=== PATIENT | female | born 1955 | race Caucasian/White ===

== ENCOUNTER 2017-03-07 17:35 | Inpatient (IN) | payer BC, MEDICARE ==
--- NOTE | ~2017-03-07 | CT2 ---
[facility] A Service of [facility] & [facility] RADIOLOGY TEXT RESULTS PATIENT: LINDSAY SETHI LOCATION: [facility] [id number] : 53 UNIT #: [id number] AGE: [address]: Gwendolyn Rutledge MD SEX: F ORDER DR: [id number] [facility] [address] [place], [place] [address] [id number] MR#: [id number] #: [id number] NAME: LINDSAY SETHI. : 1955 SEX: F STUDY DATE/TIME: 03/07/2017 19:28 UNIT: [facility] ROOM: STUDY DESCRIPTION: CT Abd and Pelv W Cont Attending Physician: Norma Maynard M.D. Referring Physician: Tay Harry M.D. Ordering Physician: Tr Olvera M.D. Primary Care Physician: Tay Harry M.D. MEDICAL IMAGING REPORT This report is preliminary unless electronic signature is present EXAM Abdomen and pelvis CT with contrast. DATE OF EXAM 03/07/2017 INDICATIONS Abdominal pain, nausea, weakness since November. History of bowel obstruction in December with surgery. Pain and nausea symptoms worse today. TECHNIQUE Contrast-enhanced abdomen and pelvis CT was performed and compared with 12/18/2016. NOTE: This CT exam was performed with one or more of the following radiation dose reduction techniques: automatic exposure control, adjustment of mA and/or kV according to patient size, and iterative reconstruction. FINDINGS CT ABDOMEN: Included lung bases demonstrate mild emphysema. There is chronic atelectasis or scarring in the right lower lobe. There is a 4 mm subpleural noncalcified nodule in the right lower lobe. Interval followup CT in 1 year is recommended to reassess stability. It was not present on a more distant 2014 study. No aortic aneurysm or dissection. There are granulomatous changes in the spleen. The adrenal glands are unremarkable. Pancreas atrophic. Postoperative changes involving the stomach are present. Liver unremarkable. Gallbladder surgically absent. Kidneys demonstrate cortical scarring but no hydronephrosis or radiopaque stone on either side. IVC filter present. CT PELVIS: Bladder demonstrates probable prolapse into the pelvis. The [facility] A Service of [facility] & [facility] RADIOLOGY TEXT RESULTS PATIENT: LINDSAY SETHI LOCATION: [facility] [id number] : 53 UNIT #: [id number] AGE: [address]: Gwendolyn Rutledge MD SEX: F ORDER DR: uterus is surgically absent. There is no drainable fluid collection in the pelvis or free fluid. Stool burden most characteristic of constipation. Appendix not identified. No secondary sign of appendicitis or inflammatory change in the right lower quadrant. The inguinal canals are unremarkable. Vertebroplasty change at L1 again noted. IMPRESSION 1. No clearly acute process identified. No bowel obstruction, drainable fluid collection or focal area of inflammatory change. Appendix not identified and may be surgically absent along with the uterus and gallbladder. 2. Postoperative changes related to the stomach with a gastric stimulator also present. 3. Incidental cortical scarring of the kidneys. 4. Incidental noncalcified 4 mm nodule in the right lower lobe. Interval followup CT in 1 year recommended. 5. Constipation. Dictated by... López Higginbotham M.D. THIS IS AN ELECTRONICALLY VERIFIED REPORT López Higginbotham M.D. at 03/07/2017 10:46 PM Kelsey TD: 03/07/2017 21:41 JOB #: [id number] MEDICAL IMAGING REPORT Page 1 of 1 COPY
--- NOTE | ~2017-03-07 | CO ---
Unit #: [id number] #: [id number] Patient: LINDSAY SETHI [id number] [facility] [address] [place], [place] [address] [id number] MR#: [id number] NAME: LINDSAY SETHI. ROOM: 215 Age: 61 Sex: F Admission Date: 03/07/2017 : 1955 Attending Physician: Areli Lott M.D. Primary Care Physician: Tay Harry M.D. Consultation Date: 03/08/2017 CONSULTATION REPORT PRIMARY CARE PHYSICIAN Tay Harry M.D. REASON FOR CONSULT Weakness. PATIENT IDENTIFICATION This is a 61-year-old, right-handed, female, evaluated in room 215 at [facility]. SOURCE OF INFORMATION Obtained from the patient as well as from medical record. HISTORY OF PRESENT ILLNESS This is a 61-year-old, right-handed, female with a past medical history of multiple sclerosis, who presents to [facility] with progressive worsening of weakness and immobility. The patient has a long history of multiple sclerosis diagnosed 20+ years ago according to the patient. She follows with Anne Grace and Dr. Barbosa for her treatment according to the patient. She was last admitted to this facility on 12/18/2016 for a bowel obstruction that required surgery. She actually then had to be sent to [facility] for pacemaker insertion and had worsening of her generalized weakness and required rehab at [facility]. She apparently remained weak, but she had no further coverage from her insurance for further inpatient rehab that she was discharged home with home health coming to see her twice a week. That lasted until this week. She states that she has had difficulty since that time with her mobility. She states that she has always been weaker on the right compared to the left chronically, but states that she has noticed progressive worsening of her weakness, possibly acutely more worse over the last week, but she states that she feels as though that this has been ongoing for quite some time. She states that "her legs buckle" and has gotten to the point that she requires the use of a wheelchair. She states prior to November, she was able to use a cane and could actually ambulate around the house without assistance other than holding onto furniture or garcia or kitchen counters. Now, even with a walker, she states that she has fallen multiple times at home. She states that she is not exhibiting any typical symptoms of an MS flare other than weakness, but is concerned as it is mostly in her legs. She does admit to about a 20-pound weight loss over the last couple of months. She reports decreased appetite and actually has a gastric stimulator in place. She does complain of some dysphagia recently, more so with pills, but states it is better whenever she tucks her chin when swallowing. She denies any double vision, blurred vision, or loss of vision, but reports she has been Unit #: [id number] #: [id number] Patient: LINDSAY SETHI seeing "black specks" in her vision recently. She denies any new headache, any new focal weakness, or paresthesia or loss of consciousness or loss of awareness, but complains of chronic right-sided weakness and altered sensation compared to the left. She states that her weakness has gotten progressively worse with slightly acutely worse over the last week or so to the point where she cannot ambulate. She presents to [facility] for weakness and recurrent falls. No reported otherwise of any exacerbating or alleviating factors or any other associated symptoms. PAST MEDICAL HISTORY 1. Myelodysplastic syndrome. 2. Multiple sclerosis. 3. Recurrent UTIs. 4. Asthma. 5. Gastroparesis, status post gastric stimulator. 6. Pacemaker placement in 12/2016. Last echocardiogram showed an ejection fraction of 50%. 7. Bilateral lower extremity DVT, status post IVC filter placement. 8. GERD. 9. Right chest port. She had a previous chest port that was removed due to an E. coli infection. 10. Status post kyphoplasty, complicated with bleeding. 11. Hernia repair. 12. Total abdominal hysterectomy. 13. Liposuction. 14. Tummy tuck. 15. Cholecystectomy. 16. Gastric stapling. 17. Vein stripping. 18. x2. 19. C-spine fusion. 20. Bowel resection for small-bowel obstruction. ALLERGIES [place], Morphine, Phenergan, Benadryl. HOME MEDICATIONS Include Remeron, omeprazole, Compazine, Tylenol, Wellbutrin, BuSpar, Fentanyl, Neurontin, Gilenya, hydrocodone, Colace, MiraLAX, iron sulfate, folic acid, Lasix, Zofran. She does state that she quit taking her Gilenya about a week ago. FAMILY HISTORY Noncontributory to the presenting condition, otherwise positive for CVA, diabetes mellitus, and CAD. SOCIAL HISTORY The patient lives with her . She does not smoke or drink alcohol or use illicit drugs. She ambulates currently with the wheel chair. Please see above for ambulation difficulties. REVIEW OF SYSTEMS Fourteen-point review of systems was done. Pertinent positives are as above, otherwise negative. PHYSICAL EXAMINATION VITAL SIGNS: Temperature 98.3. She has been afebrile, pulse 87, Unit #: [id number] #: [id number] Patient: LINDSAY SETHI respirations 18, blood pressure 135/74, blood pressure in the ER was 157/95, oxygen saturation 97%. Height 5 feet 1 inch, weight 108 pounds, BMI 20. NEUROLOGIC: She is awake, alert, and oriented to person, place, and time as well as events. No right or left confusion. No finger agnosia. No aphasia, dysarthria, or apraxia. Cranial nerve exam, she demonstrates full martinez of vision. Eyes are conjugate without ptosis or nystagmus. Extraocular movements are intact. Sensation of the scalp is intact. Strength of the muscles of facial expression is intact. Hearing is intact to finger rub and conversation. Tongue is midline. Uvula is midline. Palate elevation is normal. Head turning and shoulder shrug are unremarkable. Neck is supple. Motor exam, she has decreased bulk. Normal tone. Her strength is quite weak. She is only about 3/5, may be slightly stronger on the left compared to the right, but certainly not a 4/5 at all. She can lift against gravity, but not against resistance. She is very weak against resistance. When I attempted to have her ambulate off the bed, whenever she goes to stand, even with assistance, her knees buckle and thus I am not able to evaluate her gait without assistance. She is too weak to stand at this point. Sensory exam is intact, however, to soft touch and pinprick sensation with no extinction. Gait deferred. Romberg deferred. Reflexes are about 1/4 are difficult to elicit. Toes are equivocal. No hyperreflexia seen. No myoclonus seen. Coordination unremarkable. Normal [id number]. She denies any back pain or lower extremity pain. DIAGNOSTIC STUDIES IMAGING STUDIES: CT of the abdomen and pelvis without contrast on 03/07/2017; no clearly acute process identified, no bowel obstruction, drainable fluid collection or focal area of inflammatory change; appendix not identified, may be surgically absent along with the uterus and gallbladder; postoperative changes related to stomach by the gastric stimulator also present; incidental cortical scarring of the kidneys and incidental noncalcified 4 mm nodule in the right lower lobe, interval follow up CT in 1 year recommended; constipation. Last brain imaging we have here is from 12/2016. She had a CT of the head without contrast that is negative for any acute intracranial process. It showed atrophy and probable chronic ischemic changes in the periventricular white matter. No evidence of an acute intracranial hemorrhage. Chronic appearing sinus disease per Radiology report. She has multiple spine imaging. MRIs of the thoracic, lumbar and cervical spine in the past showing multiple compression fractures and degenerative disease. Please see those for prior reports. In the past, MRI of the brain, showing white matter disease, consistent with provided clinical diagnosis of multiple sclerosis. LABORATORY RESULTS: Troponin unremarkable. Urinalysis unremarkable. BMP unremarkable other than a BUN of 24 and CBC shows a white count of 7.3, hemoglobin 10.7, hematocrit 33.2, platelet count 161. IMPRESSION 1. Progressive weakness and immobility as well as falls, likely multifactorial, in a patient with long-standing multiple sclerosis. She reports a history of relapsing multiple sclerosis, but looks like she may have a progressive pattern. At this point, I have discussed the case with Dr. Ramos and he has seen and evaluated the patient as well. At this Unit #: [id number] #: [id number] Patient: LINDSAY SETHI S point, an MRI may not change treatment. She does have a pacemaker and if she does require an MRI, we do have her card for [employer] to check on that, but at this point. Dr. Ramos recommended trying steroids to see if that gives her any improvement. Last PT, OT to evaluate as well as speech therapy and we will treat symptomatically and follow up clinically. She has already been started on Protonix, recommend considering switching over to IV if necessary. 2. History of multiple sclerosis for 20+ years. 3. Myelodysplastic syndrome. 4. Weight loss/malnutrition. 5. Anemia. 6. Pacemaker. 7. History of deep venous thrombosis, status post inferior vena cava filter. PLAN Again, the patient was seen and evaluated by Dr. Ramos and discussed with him. An MRI at this point likely would not change anything and we will recommend treating clinically. We will request records from her MS specialist and trial the patient on steroids. She states she has not been on steroids in several years. We will re-evaluate her clinically and further recommendations pending workup and further clinical course. We thank you very much for allowing us to assist in the care of this patient. Recommend consideration of long-term placement if the patient does not improve. She certainly has multiple factors affecting her immobility and treating for possible MS exacerbation is just one component. The patient appears to have a significant decline and appears to be quite progressive over more of a subacute to chronic duration. Please call for any questions or issues. We thank you very much for allowing us to assist in the care of this patient. Dictated by... Myra YePHumzaRHumzaN. for Nayla Hernandez/jake TD: 03/09/2017 04:06 JOB #: [id number] CONSULTATION REPORT Page 1 of 1 X Chani Vasquez APRN X CONSULTATION REPORT
--- NOTE | ~2017-03-07 | HP ---
Unit #: [id number] #: [id number] Patient: LINDSAY SETHI [id number] [address] [place], [place] [address] [id number] MR#: [id number] NAME: LINDSAY SETHI. ROOM: Age: 61 Sex: F Admission Date: 03/07/2017 : 1955 Attending Physician: Norma Maynard M.D. Referring Physician: Tay Harry M.D. Primary Care Physician: Tay Harry M.D. HISTORY AND PHYSICAL CHIEF COMPLAINT Leg weakness with multiple falls and immobilization syndrome HISTORY This 61-year-old female with multiple sclerosis, MDS, gastroparesis, was sent over by her physician for weakness. Patient was last admitted to this facility 12/18/2016 for a bowel obstruction requiring surgery, then had to be sent to [facility] for pacemaker insertion, became extremely weak, and went to [facility] for rehab. She remained weak but apparently her insurance would not cover further inpatient rehab. She was discharged home with home health coming in twice a week. She has been unable to walk since that time, had had multiple falls when attempting to use a walker. She was seen today by Dr. Barillas who asked her to come back to the hospital for evaluation and mcfp placement. Workup performed in this ER is fairly unremarkable except for anemia which has actually improved. When I attempt to walk the patient with two assistants, her knees buckle and she is unable to ambulate. She states that this does not feel like her usual MS flare but feels more consistent with deconditioning. PAST MEDICAL HISTORY 1. Myelodysplastic syndrome (MDS). 2. Recurrent urinary tract infections. 3. Asthma. 4. Gastroparesis, status post gastric stimulator in place. 5. Sinus pause requiring permanent pacemaker at [facility] in December. Ejection fraction was 50% on echo. 6. Bilateral lower extremity DVTs status post IVC filter placement. 7. GERD. 8. Multiple sclerosis x21 years. 9. Right chest port. Previous chest port was removed due to an E. coli infection. 10. Status post kyphoplasty complicated by bleeding. 11. Hernia repair. 12. Total abdominal hysterectomy. 13. Liposuction and tummy tuck. 14. Cholecystectomy. 15. Gastric stapling. 16. Vein stripping. 17. x2. 18. C spine fusion. 19. Bowel resection for a small bowel obstruction. Unit #: [id number] #: [id number] Patient: LINDSAY SETHI ALLERGIES Morphine, walnuts, Phenergan, Benadryl. HOME MEDICATIONS 1. Remeron 45 mg q.h.s. 2. Omeprazole 40 mg b.i.d. 3. Compazine 5 mg t.i.d. 4. Tylenol q.4 h. 5. Wellbutrin 450 mg daily. 6. BuSpar 10 mg q.i.d. 7. Fentanyl 25 mg patch q.48 h. 8. Neurontin 800 mg q.i.d. 9. Patient was taking Gilenya 0.5 mg daily. 10. Hydrocodone 10/325 q.4 h. 11. Colace. 12. MiraLAX. 13. Iron sulfate 325 mg daily. 14. Folic acid 1 mg daily. 15. Lasix 40 mg daily. 16. Zofran. FAMILY HISTORY CAD, diabetes mellitus, CVA. SOCIAL HISTORY The patient lives with her ; lifelong nonsmoker, does not drink alcohol. REVIEW OF SYSTEMS Review of systems is notable for weakness, falls, immobilization syndrome, patient currently is wheelchair bound, UTIs, asthma, DVTs, gastroparesis, GERD, multiple sclerosis, abovementioned surgeries, depression, chronic pain. All other systems were reviewed and are otherwise negative. PHYSICAL EXAMINATION GENERAL: Pleasant thin 61-year-old female currently in no acute distress. VITAL SIGNS: Temperature 98.5. Pulse 76. Respirations 12. Blood pressure 157/95. O2 saturation 100% on room air. HEENT: Eyes PERRLA, extraocular muscles are intact. Pharynx is benign. NECK: Supple, without adenopathy or thyromegaly. CHEST: Clear. CARDIAC: Normal S1 and S2, without S3, S4 or murmur. ABDOMEN: Bowel sounds are present. Multiple well-healed scars with mild abdominal tenderness. No rebound guarding. No hepatosplenomegaly or masses. EXTREMITIES: Mild edema. NEUROLOGIC EXAM: Patient is awake, alert, oriented. Cranial nerves are intact. She has good strength in her upper arms. She is able to lift her legs off the bed. However, when I attempt to ambulate with two assistants her legs buckle and he would fall except that we were able to hold her up. Negative myoclonus. Deep tendon reflexes are diminished. DIAGNOSTIC STUDIES LABORATORY: Hematocrit is 33.2 which is improved, normal white count, platelet count, MCV is 98. SMA-12: BUN 24. Cardiac markers are negative. Urinalysis: Trace leukocyte esterase, otherwise negative. Unit #: [id number] #: [id number] Patient: LINDSAY SETHI IMAGING: CT scan shows postop changes. There is a right lower lobe noncalcified lung nodule. ASSESSMENT 1. Bilateral leg weakness with multiple falls and immobilization syndrome. Patient now is wheelchair bound. This occurred after a prolonged hospitalization earlier this year. Likely related to deconditioning although patient does have a history of multiple sclerosis. 2. Multiple sclerosis. Patient was taking Gilenya, 3. Myelodysplastic syndrome with stable anemia. 4. Permanent pacemaker insertion for pauses. 5. Gastric stimulator in place for gastroparesis. 6. Deep venous thrombosis, status post inferior vena cava filter. 7. Asthma. 8. Chronic pain. 9. Depression. 10. Tiny right lower lobe lung nodule noted on CT scan. Patient will need follow up of CT scan in one year to assure stability. However, she is a lifelong nonsmoker. PLANS 1. [facility] placement, will ask Social Work to see. 2. Will ask Neurology to see although I believe lower extremity weakness is related to deconditioning as opposed to MS flare. 3. DVT prophylaxis. 4. Physical Therapy to see. Dictated by Gwendolyn Rutledge M.D. AML/cf TD: 03/07/2017 22:01 JOB #: [id number] HISTORY AND PHYSICAL Page 1 of 1 X Gwendolyn Rutledge MD X HISTORY AND PHYSICAL
--- NOTE | ~2017-03-07 | DS ---
Unit #: [id number] #: [id number] Patient: LINDSAY SETHI [id number] [address] [address] [id number] I MR#: [id number] NAME: LINDSAY SETHI. ROOM: 215 Age: 61 Sex: F Admission Date: 03/07/2017 : 1955 Discharge Date: 03/12/2017 Attending Physician: Areli Lott M.D. Referring Physician: Tay Harry M.D. Primary Care Physician: Tay Harry M.D. DISCHARGE SUMMARY DISCHARGE DIAGNOSES 1. Multiple sclerosis flare up requiring IV steroids. Per neurology's recommendations, the patient will be discharged to rehab. 2. Bilateral lower extremity weakness, possibly related to multiple sclerosis flare up as well as deconditioning. 3. Gastroparesis: Trial of Reglan will be used for a total of two weeks. 4. Chronic pain syndrome: We have switched her fentanyl patch to MS Contin orally twice daily and as needed [place] for breakthrough pain. 5. Nausea and vomiting: Resolved at this time. 6. Anemia: Likely due to chronic disease. Stable at this time without any signs of overt bleeding. 7. Chronic kidney disease: At this time, patient's creatinine is 1.3 and her GFR is 43.6. 8. History of myelodysplastic syndrome with anemia. 9. Permanent pacemaker insertion for history of pauses. 10. Gastric stimulator for gastroparesis. 11. History of deep venous thrombosis with IVC placed. 12. History of asthma. 13. Depression. 14. Small nodule on CT scan which is an incidental finding. Patient will need a repeat CT scan in a year to evaluate for stability. PROCEDURE None. PHARMACEUTICAL REPRESENTATIVE Dr. Ramos with neurology. DIAGNOSTIC STUDIES LABORATORY: Labs from March 10 include BMP: Glucose 123, BUN 34, creatinine 1.3, sodium 136, potassium 4.9, chloride 102, CO2 of 27. CBC with WBC of 4.7, RBC 2.97, hemoglobin 9.4, hematocrit 29.1, MCV 97.9, MCH 31.6, MCHC 32.2, RDW 16.5, platelets 161,000, MPV 8.9. IMAGING: CT abdomen and pelvis on March 07, 2017: Impression - no clearly acute process identified. No bowel obstruction, drainable fluid collection or focal area of inflammatory change. Appendix not identified, may be surgically absent along with the uterus and gallbladder. Postoperative changes related to the stomach with a gastric stimulator also present. Incidental cortical scarring of the kidneys. Incidental noncalcified 4 mm nodule in the right lower lobe of the lung. Constipation. Unit #: [id number] #: [id number] Patient: [facility] The patient is a 61-year-old female with past medical history of multiple sclerosis, myelodysplastic syndrome, gastroparesis with a stimulator, asthma, remote DVT with IV filter placed, GERD, chronic kidney disease who was brought to the emergency department due to bilateral lower extremity weakness and immobilization syndrome. Patient was hospitalized at this facility on December 18, 2016 for a bowel obstruction requiring surgery and was sent to [facility] for pacemaker insertion. Patient had been at [facility] for rehab. Patient did go home with her family after three months at [facility]. She has had home health coming to her house twice weekly. She became increasingly weaker and had been falling at home and has been unable to walk. For that, she was seen by her primary care physician on the day of admission, Dr. Harry, who had recommended that patient be re-evaluated in the emergency department. Patient was admitted for bilateral lower extremity weakness, recurrent falls, immobilization syndrome. She was seen in consultation with neurology with Dr. Ramos who felt that with the sudden onset of unable to ambulate that there is a possibility that this could be a MS flare up and it was in the patient's interest to treat it for so with IV steroids. At my time of evaluation, patient tells me that her weakness has improved very minimally. She is now able to transfer with the help of assistance but she is still unable to ambulate. For that, she will be recommended to be discharged to [facility] for continuing physical and occupational therapy. In addition to the MS flare up, patient is on significant pain medicine with fentanyl patch three times daily. We felt that this may be contributing to her weakness. Therefore, this was discontinued and instead MS Contin 20 mg orally twice daily was utilized with [place] 10/325 every four hours as needed for breakthrough pain. She is tolerating the switch fairly well. Today, she tells me that she has had two days of diarrhea. We will be checking to rule out Clostridium difficile. Patient has not received oral antibiotics recently. She was also seen in consultation with speech therapy for concern with dysphagia, who recommends to continue with regular oral textures as tolerated, six small meals a day as needed, remain upright for all oral intake to check swallow rates, place all meds and put in applesauce or puree. At this time, she will continue with her IV steroid treatment per neurology's recommendation on today, March 12, and she will be discharged to [facility] on March 13. DISCHARGE CONDITION Stable to [facility]. ACTIVITY To resume all activities with physical and occupational therapy with the hope that patient will be able to ambulate again. DIET Per speech therapy's recommendations as stated above. Patient can continue with physical, occupational, and speech therapy there. FOLLOWUP Followup with her family physician, Dr. Tay Harry, within two weeks upon discharge. DISCHARGE MEDICATIONS 1. Acetaminophen 500 mg orally every four to six hours as needed for mild pain. 2. Gabapentin has been switched to 600 mg orally twice daily per patient's creatinine clearance. Unit #: [id number] #: [id number] Patient: LINDSAY SETHI 3. Perforomist use recommendation. 4. Bupropion 450 mg extended release orally daily. 5. Remeron 45 mg orally at bedtime. 6. Compazine 5 mg orally three times daily. 7. BuSpar 10 mg orally four times daily. 8. Colace 100 mg orally daily as needed for constipation. 9. Polyethylene glycol 225 mg orally daily. 10. Lasix will be switched to 20 mg orally daily. 11. Iron tablet (ferrous gluconate) 324 mg orally daily. 12. Reglan 10 mg orally three times daily with meals and at bedtime. This will be continued until March 23 for a total of two weeks for her gastroparesis. 13. OxyContin 20 mg orally twice daily. 14. [place] 10/325 mg orally every six hours as needed for severe breakthrough pain. 15. Omeprazole 40 mg orally twice daily. 16. Folic acid 1 mg orally daily. 17. We are discontinuing the Duragesic patch at this time. This dictation took 40 minutes including patient education and to coordinate care. Dictated by... Ioana James PA-C for Nayla Brown TD: 03/12/2017 10:36 JOB #: [id number] DISCHARGE SUMMARY Page 1 of 1 X X DISCHARGE SUMMARY
--- NOTE | ~2017-03-07 | DS ---
Unit #: [id number] #: [id number] Patient: LINDSAY SETHI [id number] [address] [address] [id number] I MR#: [id number] NAME: LINDSAY SETHI. ROOM: 215 Age: 61 Sex: F Admission Date: 03/07/2017 : 1955 Discharge Date: Attending Physician: Areli Lott M.D. Referring Physician: Tay Harry M.D. Primary Care Physician: Tay Harry M.D. DISCHARGE SUMMARY ADDENDUM Since the time of the dictated discharge summary, the patient has had diarrhea. Please note that the patient does have very strict diet, which consists mainly of shakes and Ensure drinks. This may be the cause of her diarrhea. We have checked a C. diff., which is negative. I will add to her medicine list probiotic 2 capsules orally b.i.d., as well as Imodium 4 mg orally every 4 hours as needed for loose stool. DISCHARGE CONDITION/DISPOSITION Stable to [facility]. DISCHARGE FOLLOWUP 1. Follow up with her primary care physician within 1-2 weeks upon discharge from rehab. Follow up with her own neurologist at the next available appointment, given her MS flare up. Dictated by... RISSA Renteria/ginny TD: 03/13/2017 13:53 JOB #: [id number] DISCHARGE SUMMARY Page 1 of 1 X X DISCHARGE SUMMARY
--- NOTE | ~2017-03-07 | A ---
[facility] Nutrition Therapy DATE: 03/08/17 Patient: LINDSAY SETHI Physician: BRANDON Address: [address] [facility] [address] Room/Bed: [address] [place] [address], Zip: [place] [address] Admit Date: 03/07/17 Date of : [birth year] Height: 5 1 Weight: 109 49.44 NUTRITIONAL ASSESSMENT: REASON: HAND LEATHER TRIMMER verbal consult 61 yo female admitted for leg weakness w/ multiple falls & immbolization syndrome PMH: Multiple sclerosis, MDS, gastroparesis, EF 50%, hernia repair, bowel resection Anthropometrics: Ht: 5'1" Wt: 49.1 kg (108#) BMI: 20.4 Labs: BUN 24 Meds: Zofran, Miralax, Folic acid, Ferrous gluconate, Colace, Laxative of choice, Remeron, NaCl, Protonix, Furosemide, Solu-medrol I/O & Bowel function: Last BM 03/07 Skin Integrity: Scar (abd/L forearm), port (R chest), varicose veins/ecchymosis (BLE), no edema noted Assessment: Chart reviewed, events noted. HAND LEATHER TRIMMER gave verbal consult to see pt d/t weight loss. Per HAND LEATHER TRIMMER, pt has some dysphagia and HAND LEATHER TRIMMER recommends regular diet and PO textures as tolerated. Pt reports ~20# wt loss over the past 2 months d/t lack of appetite and nausea. Pt states UBW ~129#. RD advisory intern provided written diet education RE: N/V and high-calorie recipes. Pt stated she does not like healthy heart diet d/t lack of salt, requested regular diet. RD advisory intern encouraged a supplement, pt agreed to Ensure TID, in addition to Ensure Clear TID. Pt reported no diet questions at this time. See recommendations below. Dx: Inadequate oral intake RT Dx, current condition AEB ~20# weight loss. Intervention: 1. Regular diet, per pt request 2. Ensure TID 3. HS snack 4. Diet education Monitoring, Evaluation and Goals: 1. PO intake; consume >75% of meals and supplements 2. Weight; prevent unintentional weight loss, promote gradual weight gain 3. GI; promote regular GI function Recommendations: [facility] Nutrition Therapy DATE: 03/08/17 Patient: LINDSAY SETHI Physician: BRANDON Address: [address] [facility] Room/Bed: [address] [place] [address], Zip: [place] [address] Admit Date: 03/07/17 Date of : [birth year] Height: 5 1 Weight: 109 49.44 1. Please change diet order to regular per patient request. 2. Please order Vanilla Ensure Enlive TID w/ meals. 3. Please order nighttime snack. 4. Appreciate family and staff to encourage adequate calorie intake. Pt is at a mild nutritional risk. RD will f/u per protocol. Respectfully, Meri Youssef, Subway Train Operator João Terrell MS, RD, LD Food and Nutritional Services [facility] cc: client file
--- NOTE | ~2017-03-07 | EKG ---
PATIENT: LINDSAY SETHI UNIT #: [id number] Ventricular Rate: 77 BPM Atrial Rate: 77 BPM P-R Interval: 144 ms QRS Duration: 94 ms Q-T Interval: 384 ms QTC Calculation(Bezet): 434 ms P [place]: 89 degrees Calculated R [place]: 39 degrees Calculated T [place]: 89 degrees Diagnosis Line: Sinus rhythm with frequent Premature ventricular Diagnosis Line: complexes Diagnosis Line: Borderline ECG Diagnosis Line: When compared with ECG of 25-DEC-2016 09:26, Diagnosis Line: Premature ventricular complexes are now Present Diagnosis Line: Nonspecific T wave abnormality no longer evident Diagnosis Line: in Inferior leads Diagnosis Line: Confirmed by CHAVEZ JANG MD ([id number]) on Diagnosis Line: 03/07/2017 9:41:15 PM INTERPRETING MD: JALIL
[~2017-03-07 17:35] MED LIST: ACTONEL PO; ADALATCC; ADALATCC PO; ADVAIR 250-501 EACH IH; ADVAIR 5001 DISK W/D; ADVAIR 5001 DISK W/D PO; ALBUTEROL 0.5ML INH; ALBUTEROL MININEB NEB; ALBUTEROL17 GM NEB; ALBUTEROL2.5 MG/0.5 IH; AMANTADINE HCL100 MG; AMANTADINE100 M1 PO; AMITRYPTYLINE; ARTIFICIAL TEAR1 DRP; ASPIRIN ENTERI325 M1 PO; ASPIRIN PO; ASPIRIN81 M2 PO; BENADRYL PO; BENTYL10 M1 PO; BENTYL10 MG PO; BETA SERON IJ; BETA SERON INJ; BUDEPRION XL300 MG PO; BUPROPION XL150 MG PO; BUPROPION XL300 MG PO; BUSPIRONE HCL10 MG PO; CARAFATE1 G PO; CEFEPIME IV; CEFTIN250 MG/5 M PO; CIPRO PO; CITRACAL200 MG PO; CITRUCEL500 MG; CLONIDINE PO; COLACE PO; COMBIVENT U/D3 M2 INH; COMPAZINE5 M1 PO; COUMADIN; COUMADIN PO; CYANOCOBAL1000 MCG/M INJ; CYMBALTA PO; DESYREL50 MG PO; DURAGESIC1 EACH TD; DURAGESIC25 MCG EXT; FAMOTIDINE PO; FENTANYL1 EAC1 TD; FENTANYL1 PATCH .1 TD; FERROUS SULFATE PO; FLAGYL PO; FLEXERIL10 MG PO; FLONASE16 GM; FOLIC ACID1 MG PO; FORFIVO XL450 MG PO; GABAPENTIN800 MG PO; GILENYA0.5 MG PO; GOLYTELY SOLU4000 ML PO; HCTZ PO; HYDROCHLORIDE; HYDROCODON-ACE1 EAC5 PO; HYDROCODON-ACE1 EACH PO; HYDROCODONE-APA1 T33 PO; HYOSCYAMINE; HYOSEYAMINE PO; IVIG IV; KCL; KEPPRA1000 MG PO; KEPPRA500 MG PO; LEVAQUIN PO; LEVETIRACETAM1000 MG PO; LEVSIN; LEVSIN PO; LEVSIN0.125 M2; LEXAPRO; LOMOTIL TABLET1 TAB PO; LORTAB 101 TAB 10/5 PO; LORTAB 7.5-5001 TAB PO; LORTAB 7.51 TAB 7.5/ PO; LOVENOX SUBQ; MIRALAX255 GM PO; MUCOMYST4 ML 20% INH; MULTI VITAMIN1 EACH PO; MULTI-VITAMIN1 TAB PO; MULTIVITAMIN W-1 TAB PO; MYSOLINE50 M1 PO; NAPROSYN250 M1 PO; NEBULIZER1 KI1 MC; NEURONTIN; NEURONTIN PO; NEURONTIN800 MG PO; NIFEDIAC CC90 MG PO; NORVASC PO; OMEPRAZOLE20 M1 PO; OMEPRAZOLE20 M2 PO; OMEPRAZOLE40 M1 PO; OSCIMIN0.125 MG PO; OXYCODONE HCL10 MG PO; PERCOCET PO; PERCOCET5/325 PO; PERFOROMIS20 MCG/2 M IH; PHENERGAN; PHENERGAN PO; PHENERGAN25 M1 DOB; PHENERGAN25 M1 PO; PHENERGAN25 MG PO; PHENOL-SODIUM180 M1 MM; PREDNISONE PO; PREMARIN; PRILOSEC PO; PRILOSEC20 M1 PO; PRILOSEC20 MG PO; PRIMIDONE50 MG PO; PROMETHAZINE HC25 MG PO; PROTONIX PO; PROTONIX20 MG PO; PULMICORT0.5 MG/2 M IH; RECLAST IV; REGLAN; REGLAN PO; REGLAN10 MG PO; REMERON45 MG PO; SENNA PO; SENNA S TABLET1 TAB PO; SERTRALINE HCL100 MG PO; SERTRALINE HCL50 MG PO; SINGULAIR PO; SMZ/TMP PO; SPIRIVA18 MCG; SPIRIVA18 MCG INH; TEMAZEPAM PO; TEMAZEPAM30 MG PO; THEOPHYLLIN; THEOPHYLLIN PO; THORAZINE25 MG PO; TRANSDERM-1 PATCH .7 TOP; ULTRAM; ULTRAM PO; VANCOMYCIN IV; VIBRAMYCIN100 M1 PO; VITAMIN B-121000 MCG PO; VITAMIN D 4001 UDTAB; VITAMIN D 4001 UDTAB PO; VITAMIN D50000 UNIT PO; WALGREENS PHARMACY; WELLBUTRIN SR; WELLBUTRIN SR PO; WELLBUTRIN XL PO; ZANAFLEX PO; ZANAFLEX4 M1 PO; ZITHROMAX500 MG PO; ZOCOR PO; ZOLEDRONIC ACID4 MG; ZOLOFT100 MG PO; [UNRECOGNIZED DRUG - OTHER]; [UNRECOGNIZED DRUG - OTHER]; [UNRECOGNIZED DRUG - OTHER] PO; [UNRECOGNIZED DRUG - OTHER] PO
[2017-03-07 17:55] LABS: BASOPHIL% 0.3 % (0-2.5); EOSINOPHIL# 0.1 X10e3 (0-0.7); EOSINOPHIL% 0.8 % (0.0-7.0); HEMATOCRIT 33.2 % (35.0-45.0); HEMOGLOBIN 10.7 gm/dL (12.0-16.0); LYMPHOCYTE# 0.3 X10e3 (1.0-3.5); LYMPHOCYTE% 4.7 % (17.0-45.0); MEAN CELL VOLUME 97.8 FL (83-96); MEAN CORPUSCULAR HEMOGLOBIN 31.6 PG (28-34); MEAN CORPUSCULAR HGB CONC 32.3 g/dL (30-36); MEAN PLATELET VOLUME 8.7 FL (6.5-11.5); MONOCYTE# 0.7 X10e3 (0-1.0); MONOCYTE% 9.5 % (3.0-12.0); NEUTROPHIL# 6.2 X10e3 (1.5-7.1); NEUTROPHIL% 84.7 % (40-75); PLATELET COUNT 161 X10e3 (140-420); RED BLOOD COUNT 3.39 X10e (3.90-5.30); RED CELL DISTRIBUTION WIDTH 16.6 % (11.0-15.5); WHITE BLOOD COUNT 7.3 X10e3 (4.0-10.5)
[2017-03-07 18:00] LABS: DIFF IND NO
[2017-03-07 18:07] LABS: POC - CKMB 2.3 ng/mL (0.0-7.9); POC - TROPONIN <0.05 ng/mL (<=0.05)
[2017-03-07] MEDS ORDERED: MIRTAZAPINE45 M1 PO (18:16)
[2017-03-07] MEDS ORDERED: OMEPRAZOLE40 M1 PO (18:17)
[2017-03-07] MEDS ORDERED: COMPAZINE5 M1 PO (18:18)
[2017-03-07] MEDS ORDERED: ACETAMINOPHEN (18:18)
[2017-03-07] MEDS ORDERED: FORFIVO XL450 MG PO (18:19)
[2017-03-07] MEDS ORDERED: BUSPIRONE HCL10 MG PO (18:19)
[2017-03-07] MEDS ORDERED: ACETAMINOPHEN PO (18:19)
[2017-03-07] MEDS ORDERED: DURAGESIC1 EAC1 TD (18:22)
[2017-03-07] MEDS ORDERED: HYDROCODON-ACE1 EAC5 PO (18:23)
[2017-03-07] MEDS ORDERED: GILENYA0.5 MG PO (18:23)
[2017-03-07] MEDS ORDERED: GABAPENTIN800 MG PO (18:23)
[2017-03-07] MEDS ORDERED: DOCUSATE SODIU100 MG PO (18:24)
[2017-03-07 18:25] LABS: ALBUMIN SERUM 3.5 g/dL (3.5-5.0); ALKALINE PHOSPHATASE 75 U/L (32-92); ALT (SGPT) 15 U/L (10-40); AMYLASE 26 U/L (0-46); AST (SGOT) 21 U/L (10-42); BILIRUBIN,TOTAL 0.2 mg/dL (0.2-2.0); BLOOD UREA NITROGEN 24 mg/dL (9-23); BUN/CREATININE RATIO 26.66; CALCIUM SERUM 9.2 mg/dL (8.4-10.2); CARBON DIOXIDE 26 mmol/L (22-31); CHLORIDE 102 mmol/L (100-111); CREATININE SERUM 0.9 mg/dL (0.6-1.4); GLOM FILT RATE Estimated 68.1 mL/min (>60); GLUCOSE FASTING 83 mg/dL (70-110); LIPASE 22 U/L (22-51); POTASSIUM 3.5 mmol/L (3.5-5.1); PROTEIN TOTAL SERUM 7.1 g/dL (6.0-8.3); SODIUM 137 mmol/L (135-145)
[2017-03-07] MEDS ORDERED: FERRO-TIME325 MG PO (18:26)
[2017-03-07] MEDS ORDERED: SMOOTHLAX238 GM PO (18:26)
[2017-03-07 18:27] LABS: BILIRUBIN, DIRECT <0.1 mg/dL (0.0-0.2); BILIRUBIN,INDIRECT 0.1 mg/dL (0.0-0.9)
[2017-03-07] MEDS ORDERED: FOLIC ACID1 MG PO (18:27)
[2017-03-07] MEDS ORDERED: LASIX PO (18:27)
[2017-03-07 18:58] LABS: URINE SOURCE CLEAN CATCH
[2017-03-07 19:05] LABS: URINE APPEARANCE CLEAR; URINE BILIRUBIN NEG (NEG); URINE BLOOD NEG (NEG); URINE COLOR YELLOW; URINE GLUCOSE NEG (NEG); URINE KETONE NEG (NEG); URINE LEUKOCYTE ESTERASE TRACE (NEG); URINE NITRATE NEG (NEG); URINE PROTEIN NEG (NEG); URINE SPECIFIC GRAVITY 1.005 (1.003-1.035); URINE UROBILINOGEN 0.2 MG/DL (NEG)
[2017-03-07 19:08] LABS: U HYALINE CASTS AUWI 0-2 /[LPF]; URBCS1 AUWI 0-2 /[HPF] (0-2); URINE BACTERIA AUWI NEG (NEGATIVE); URINE SQUAMOUS EPITHELIAL CELL NONE SEEN /[HPF]; UWBCS1 AUWI 0-2 (0-5)
[2017-03-07 19:10] LABS: CULTURE INDICATED? NO
[2017-03-07 20:20] LABS: POC - CKMB 1.8 ng/mL (0.0-7.9); POC - TROPONIN <0.05 ng/mL (<=0.05)
[2017-03-09 06:03] LABS: HEMOGLOBIN 10.3 gm/dL (12.0-16.0); MEAN CORPUSCULAR HEMOGLOBIN 31.4 PG (28-34); MEAN CORPUSCULAR HGB CONC 32.1 g/dL (30-36); RED BLOOD COUNT 3.26 X10e (3.90-5.30); RED CELL DISTRIBUTION WIDTH 16.6 % (11.0-15.5)
[2017-03-09 06:05] LABS: WHITE BLOOD COUNT 1.3 X10e3 (4.0-10.5)
[2017-03-09 07:00] LABS: BUN/CREATININE RATIO 22.85; CALCIUM SERUM 9.5 mg/dL (8.4-10.2); CREATININE SERUM 1.4 mg/dL (0.6-1.4); GLOM FILT RATE Estimated 39.9 mL/min (>60); MAGNESIUM 1.9 mg/dL (1.6-3.0); POTASSIUM 4.6 mmol/L (3.5-5.1)
[2017-03-10 05:58] LABS: HEMATOCRIT 29.1 % (35.0-45.0); HEMOGLOBIN 9.4 gm/dL (12.0-16.0); MEAN CELL VOLUME 97.9 FL (83-96); MEAN CORPUSCULAR HEMOGLOBIN 31.6 PG (28-34); MEAN CORPUSCULAR HGB CONC 32.2 g/dL (30-36); MEAN PLATELET VOLUME 8.9 FL (6.5-11.5); RED BLOOD COUNT 2.97 X10e (3.90-5.30); RED CELL DISTRIBUTION WIDTH 16.5 % (11.0-15.5)
[2017-03-10 06:03] LABS: WHITE BLOOD COUNT 4.7 X10e3 (4.0-10.5)
[2017-03-10 06:57] LABS: BUN/CREATININE RATIO 26.15; CALCIUM SERUM 9.1 mg/dL (8.4-10.2); CREATININE SERUM 1.3 mg/dL (0.6-1.4); GLOM FILT RATE Estimated 43.6 mL/min (>60); POTASSIUM 4.9 mmol/L (3.5-5.1)
[2017-03-13 09:39] LABS: HEMATOCRIT 28.6 % (35.0-45.0); HEMOGLOBIN 9.4 gm/dL (12.0-16.0); MEAN CELL VOLUME 97.8 FL (83-96); MEAN CORPUSCULAR HEMOGLOBIN 32.1 PG (28-34); MEAN CORPUSCULAR HGB CONC 32.8 g/dL (30-36); MEAN PLATELET VOLUME 8.4 FL (6.5-11.5); RED BLOOD COUNT 2.93 X10e (3.90-5.30); RED CELL DISTRIBUTION WIDTH 16.5 % (11.0-15.5); WHITE BLOOD COUNT 3.5 X10e3 (4.0-10.5)
[2017-03-13 10:10] LABS: ALBUMIN SERUM 2.9 g/dL (3.5-5.0); BILIRUBIN,TOTAL 0.2 mg/dL (0.2-2.0); BUN/CREATININE RATIO 38.18; CALCIUM SERUM 7.8 mg/dL (8.4-10.2); CREATININE SERUM 1.1 mg/dL (0.6-1.4); GLOM FILT RATE Estimated 53.4 mL/min (>60); POTASSIUM 3.6 mmol/L (3.5-5.1); PROTEIN TOTAL SERUM 5.7 g/dL (6.0-8.3)
== END 2017-03-14 13:33 | DRG 59 ==
LOC: CED 17:35 → CEDOF 21:54 → C2A 23:22
PROVIDERS: Emergency Medicine; Family Medicine; Physician Assistant Medical; Student in an Organized Health Care Education/Training Program
DX: G35 Multiple sclerosis (principal); E46 Unspecified protein-calorie malnutrition; K31.84 Gastroparesis; R13.10 Dysphagia, unspecified; D46.9 Myelodysplastic syndrome, unspecified; F32.9 Major depressive disorder, single episode, unspecified; K21.9 Gastro-esophageal reflux disease without esophagitis; D63.8 Anemia in other chronic diseases classified elsewhere; N18.9 Chronic kidney disease, unspecified; R53.1 Weakness; R53.81 Other malaise; G89.4 Chronic pain syndrome; R11.2 Nausea with vomiting, unspecified; J45.909 Unspecified asthma, uncomplicated; R91.8 Other nonspecific abnormal finding of lung field; Z96.89 Presence of other specified functional implants; M62.3 Immobility syndrome (paraplegic); R19.7 Diarrhea, unspecified; Z79.891 Long term (current) use of opiate analgesic; Z91.81 History of falling; Z79.899 Other long term (current) drug therapy; Z86.718 Personal history of other venous thrombosis and embolism; Z95.0 Presence of cardiac pacemaker; Z88.5 Allergy status to narcotic agent; Z88.8 Allergy status to other drugs, medicaments and biological substances; Z91.018 Allergy to other foods; Z68.20 Body mass index [BMI] 20.0-20.9, adult
CPT/HCPCS: 36415; 74177; 80048; 80053; 80076; 81003; 82150; 82553; 83690; 83735; 84484; 85025; 85027; 87493; 92610; 93005; 96374; 96375; 96376; 97110; 97161; 97167; 97530; 97535; 99285; G8978-GP; G8979-GP; G8980-GP; G8987-GO; G8988-GO; G8989-GO; G8996-GN; G8997-GN; G8998-GN; J1170; J1650; J2405; J2765; J2930; Q9967

== ENCOUNTER 2017-04-17 12:30 | Emergency (ER) | payer BC, MEDICARE ==
[~2017-04-17 12:30] MED LIST changes: +ACETAMINOPHEN; +ACETAMINOPHEN PO; +DOCUSATE SODIU100 MG PO; +DURAGESIC1 EAC1 TD; +FERRO-TIME325 MG PO; +LASIX PO; +MIRTAZAPINE45 M1 PO; +SMOOTHLAX238 GM PO
[2017-04-17 13:37] LABS: BASOPHIL% 0.5 % (0-2.5); EOSINOPHIL# 0.1 X10e3 (0-0.7); EOSINOPHIL% 1.1 % (0.0-7.0); HEMATOCRIT 29.9 % (35.0-45.0); HEMOGLOBIN 9.6 gm/dL (12.0-16.0); LYMPHOCYTE# 0.1 X10e3 (1.0-3.5); LYMPHOCYTE% 2.4 % (17.0-45.0); MEAN CELL VOLUME 97.9 FL (83-96); MEAN CORPUSCULAR HEMOGLOBIN 31.6 PG (28-34); MEAN CORPUSCULAR HGB CONC 32.3 g/dL (30-36); MEAN PLATELET VOLUME 7.8 FL (6.5-11.5); MONOCYTE# 0.4 X10e3 (0-1.0); MONOCYTE% 6.5 % (3.0-12.0); NEUTROPHIL% 89.5 % (40-75); PLATELET COUNT 164 X10e3 (140-420); RED BLOOD COUNT 3.05 X10e (3.90-5.30); WHITE BLOOD COUNT 5.6 X10e3 (4.0-10.5)
[2017-04-17 13:39] LABS: DIFF IND NO
[2017-04-17 14:04] LABS: CALCIUM SERUM 8.9 mg/dL (8.4-10.2); GLOM FILT RATE Estimated 59.9 mL/min (>60)
== END 2017-04-17 16:47 | disposition home or self-care (01) ==
LOC: CED 12:30
PROVIDERS: Emergency Medicine
DX: R25.1 Tremor, unspecified (principal); D64.9 Anemia, unspecified; J45.909 Unspecified asthma, uncomplicated; G35 Multiple sclerosis; Z88.5 Allergy status to narcotic agent; Z88.8 Allergy status to other drugs, medicaments and biological substances; Z91.018 Allergy to other foods; Z79.899 Other long term (current) drug therapy
CPT/HCPCS: 36415; 80048; 85025; 96374; 99283; J1642; J2060

== ENCOUNTER 2017-04-20 11:02 | Inpatient (IN) | payer BC, MEDICARE ==
--- NOTE | ~2017-04-20 | CT101 ---
[facility]. [facility] A Service of [facility] RADIOLOGY TEXT RESULTS PATIENT: LINDSAY SETHI LOCATION: [facility] 315-01 : [birth year] UNIT #: [id number] AGE: [address]: CURT GÓMEZ MD SEX: F ORDER DR: [id number] [place] [id number] I MR#: [id number] Acc #: [id number] NAME: LINDSAY SETHI : 1955 SEX: F STUDY DATE/TIME: 04/20/2017 11:18 UNIT: SEDOF ROOM: [facility] STUDY DESCRIPTION: CT Maxillofacial Area Wo Cont Attending Physician: Curt Gómez M.D. Ordering Physician: Vladislav Lamb M.D. Primary Care Physician: Tay Harry M.D. MEDICAL IMAGING REPORT This report is preliminary unless electronic signature is present. EXAM CT scan of the facial bones without contrast. INDICATIONS Fell at home 2 nights ago with right-sided facial pain and trauma. TECHNIQUE Axial 2 mm images were obtained through the facial bones, and coronal reconstructions were generated. This CT exam was performed with one or more of the following radiation dose reduction techniques: automatic exposure control, adjustment of mA and/or kV according to patient size, and iterative reconstruction. FINDINGS There is no fracture visible. The sinuses are clear. The soft tissues are normal. IMPRESSION Normal CT scan of the facial bones. Dictated by... Hima Mccloud M.D. THIS IS AN ELECTRONICALLY VERIFIED REPORT Hima Mccloud M.D. at 04/21/2017 7:02 AM VARUN/carlito TD: 04/20/2017 20:05 JOB #: [id number] MEDICAL IMAGING REPORT Page 1 of 1
--- NOTE | ~2017-04-20 | CT107 ---
[facility] A Service of [facility] RADIOLOGY TEXT RESULTS PATIENT: LINDSAY SETHI LOCATION: [facility] : 51 UNIT #: [id number] AGE: [address]: Areli Lott MD SEX: F ORDER DR: [id number] [place] [id number] [facility]. [place], [place] [address] [id number] I MR#: [id number] Acc #: [id number] NAME: LINDSAY SETHI : 1955 SEX: F STUDY DATE/TIME: 04/23/2017 17:55 UNIT: C3A PCU ROOM: [facility] STUDY DESCRIPTION: CT Pelvis Wo Cont Attending Physician: Areli Lott M.D. Ordering Physician: Areli Lott M.D. Primary Care Physician: Tay Harry M.D. MEDICAL IMAGING REPORT This report is preliminary unless electronic signature is present EXAM CT pelvis without contrast. INDICATION Bilateral hip pain with decreased range of motion in the left hip for the past 2-[address] of the pelvis. This CT exam was performed with one or more of the following radiation dose reduction techniques: automatic exposure control, adjustment of mA and/or kV according to patient size, and iterative reconstruction. COMPARISON None. FINDINGS Osteopenia. No fracture or dislocation. No significant degenerative change. Previous hysterectomy. Moderate colonic stool burden. Degenerative change at L4-L5 and L5-S1, with at least moderate central canal narrowing. IMPRESSION No acute findings. No fracture or dislocation. Degenerative change in the lower lumbar spine. Dictated by... Bhaskar Sanchez M.D. THIS IS AN ELECTRONICALLY VERIFIED REPORT Bhaskar Sanchez M.D. at 04/24/2017 2:31 PM [facility] A Service [facility] RADIOLOGY TEXT RESULTS PATIENT: LINDSAY SETHI LOCATION: [facility] : 53 UNIT #: [id number] AGE: [address]: Areli Lott MD SEX: F ORDER DR: Dwayne TD: 04/23/2017 23:49 JOB #: [id number] MEDICAL IMAGING REPORT Page 1 of 1 COPY
--- NOTE | ~2017-04-20 | CT71 ---
[facility] A Service of [facility] RADIOLOGY TEXT RESULTS PATIENT: LINDSAY SETHI LOCATION: A 315-01 : 51 UNIT #: [id number] AGE: [address]: Areli Lott MD SEX: F ORDER DR: [id number] [place] [address] [id number] I MR#: [id number] Acc #: [id number] NAME: LINDSAY SETHI. : 1955 SEX: F STUDY DATE/TIME: 04/20/2017 11:18 UNIT: SEDOF ROOM: [facility] STUDY DESCRIPTION: CT Head Wo Contrast Attending Physician: Apurva Gómez M.D. Ordering Physician: Vladislav Lamb M.D. Primary Care Physician: Tay Harry M.D. MEDICAL IMAGING REPORT This report is preliminary unless electronic signature is present. EXAM CT of the head without contrast. INDICATION Right-sided posterior head pain, as well as face and neck pain. The patient also has bruising over the right eye and jain. The patient fell on night. TECHNIQUE Axial CT images were obtained from the vertex of the skull through the skull base. No intravenous contrast material was administered. This CT exam was performed with one or more of the following radiation dose reduction techniques: automatic exposure control, adjustment of mA and/or kV according to patient size, and iterative reconstruction. FINDINGS No acute intracranial hemorrhage is identified. Patient is noted to have diffuse cerebral atrophy with compensatory ventricular dilatation which is probably somewhat advanced for the age of 61. There is no midline shift or mass effect. There is some mild periventricular and deep white matter microangiopathic disease. No calvarial fracture is identified. There is some partial opacification of the left mastoid air cells. Remainder of the visualized paranasal sinuses and mastoid air cells appear clear. Large right frontal soft tissue hematoma is seen measuring up to 7.3 x 2.0 cm again without underlying fracture seen. IMPRESSION 1. No acute intracranial hemorrhage identified. 2. Cerebral atrophy somewhat advanced for the patient's age of 61. 3. Large right frontal soft tissue hematoma without underlying calvarial fracture. [facility] A Service of [facility] & [facility] RADIOLOGY TEXT RESULTS PATIENT: LINDSAY SETHI LOCATION: C3A 315-01 : 51 UNIT #: [id number] AGE: [address]: Areli Lott MD SEX: F ORDER DR: Dictated by... Lata Jolly M.D. THIS IS AN ELECTRONICALLY VERIFIED REPORT Lata Jolly M.D. at 04/23/2017 1:23 PM AFF/jleia TD: 04/20/2017 20:07 JOB #: [id number] MEDICAL IMAGING REPORT Page 1 of 1
--- NOTE | ~2017-04-20 | CT55 ---
[facility] A Service of [facility] & [facility] RADIOLOGY TEXT RESULTS PATIENT: LINDSAY SETHI LOCATION: A 315-01 : 53 UNIT #: [id number] AGE: [address]: Areli Lott MD SEX: F ORDER DR: [id number] [place] [id number] I MR#: [id number] Acc #: [id number] NAME: LINDSAY SETHI. : 1955 SEX: F STUDY DATE/TIME: 04/20/2017 13:58 UNIT: SEDOF ROOM: [id number] STUDY DESCRIPTION: CT Chest W Con Attending Physician: Apurva Gómez M.D. Ordering Physician: Vladislav Lamb M.D. Primary Care Physician: Tay Harry M.D. MEDICAL IMAGING REPORT This report is preliminary unless electronic signature is present. EXAM CT chest, 04/20/17. HISTORY Pain, question mass right upper lobe. Fell [address] chest performed with intravenous administration of 80 mL Isovue-370. This CT exam was performed with one or more of the following radiation dose reduction techniques: automatic exposure control, adjustment of mA and/or kV according to patient size, and iterative reconstruction. COMPARISON Comparison to CT chest 10/15/2005. FINDINGS Thyroid unremarkable. Right-sided chest port with catheter extending through right internal jugular vein and terminating in the superior vena cava. Left cardiac pacemaker with leads extending through left subclavian vein and terminating at right atrial and right ventricular levels. No axillary adenopathy. 8 mm short-axis pretracheal lymph node. 7 mm short-axis pretracheal/paratracheal lymph node. 8 mm short-axis aortopulmonary window lymph node. These nodes are more prominent than on prior examination and given findings elsewhere concerning for metastatic disease. There is an 8 mm short-axis nodule along the right aspect of the ascending aorta. This is presumed to be a lymph node. It was present in 2004 when it measured 6-7 mm and is also concerning for potential metastatic disease. The heart is normal in size. No pleural effusions. Liver shows no focal abnormality in its visualized extent. Status post cholecystectomy with mild central biliary ductal prominence, but no obstructing process seen. Likely physiologic and related to prior cholecystectomy. Correlate with laboratory data and clinical presentation. Spleen slightly heterogeneous in appearance. This is STS. [facility] A Service of [facility] & [facility] RADIOLOGY TEXT RESULTS PATIENT: LINDSAY SETHI LOCATION: C3A 315-01 : 53 UNIT #: [id number] AGE: [address]: Areli Lott MD SEX: F ORDER DR: probably a reflection of phase of contrast enhancement. No suspicious focal abnormality is clearly seen. There are calcified splenic granulomata. The adrenal glands are unremarkable. There is no acute appearing renal abnormality in the upper poles. There is some cortical attenuation in the left upper renal pole. Mild pyelocaliectasis slightly more pronounced than on prior study but present on prior study and likely the normal physiologic state for this patient. Esophagus unremarkable. Status post gastric bypass. Visualized small bowel, contains food debris but is normal in caliber. The visualized transverse colon shows a large stool burden without pathologic dilatation. This might be physiologic in nature but could be a reflection of constipation. Correlate clinically. Pulmonary parenchyma is abnormal. There is a spiculated mass in the right upper lobe immediately abutting the right brachiocephalic vein and the right azygos vein, within an azygos fissure. The interface between the mass and the azygos fissure is difficult to discern. The mass probably measures approximately 4.1 cm x 2.1 cm transversely by approximately 5.5 cm in craniocaudal extent. It may at least partially encase truncus anterior of the left pulmonary artery. It may at least partially encase the azygos vein. It is strongly concerning for malignancy. It bears a close relationship to the central portion of the right upper lobe apical segmental bronchus and may be amenable to sampling with bronchoscopy. 4 mm anterior right middle lobe pulmonary nodule. Attention at followup recommended. 4-5 mm subpleural right lower lobe pulmonary nodule. Questionably present in 2004, though more pronounced today. Continued attention at followup recommended. Dependent atelectasis or minimal pneumonitis in the posterior right lower lobe. Left upper lobe shows no definite acute pulmonary disease. There is some respiratory motion artifact. In the left lower lobe, there is a spiculated mass measuring 2 cm x 2.2 cm x 4.3 cm. There are some air bronchograms in this mass. It is possible that this represents an unusual area of atelectasis. I do not see the typical appearance of rounded atelectasis. I am concerned that this represents a second focus of malignancy. Study not tailored for assessment of the pulmonary arteries. No indication of pulmonary embolism. The aorta shows mild ascending aortic ectasia at 3.4 cm in diameter. The great vessel origins are patent. Visualized abdominal aorta patent. The visualized aortic branch vessels are patent. Bony structures show prior T12 vertebroplasty. Evidence of prior cervical spine anterior orthopedic fusion. Degenerative change in the spine. Loss of height, chronic in appearance, and some upper to mid thoracic vertebral bodies. No clearly aggressive bony lesion or clear indication of osseous metastatic disease. IMPRESSION 1. Abnormal examination. Please see complete details in body of report above. Spiculated mass in the right upper lobe suprahilar region measuring approximately 4.1 cm x 2.1 cm x 5.5 cm. Strongly concerning for malignancy. It bears an intimate relationship with STS. [facility] A Service of [facility] RADIOLOGY TEXT RESULTS PATIENT: LINDSAY SETHI LOCATION: C3A 315-01 : 53 UNIT #: [id number] AGE: [address]: Areli Lott MD SEX: F ORDER DR: the inferior portion of the right brachiocephalic vein, and the right azygos vein which rests within the previously visualized azygos fissure. Fat plane between this mass and the azygos fissure and vein is obscured and I cannot exclude partial encasement of the right azygos vein. There appears to be partial encasement of the truncus anterior of right pulmonary artery and right upper lobe apical segmental bronchus. The abnormality may be amenable to sampling with bronchoscopy. 2. There is a second spiculated mass in the left lower lobe posteromedially. It measures approximately 2 cm x 2.2 cm x 4.3 cm. It contains some air bronchograms but it has a somewhat rounded configuration and irregular margins. It does not have the typical appearance of rounded atelectasis and I am concerned that this represents a second site of malignancy. Both of these abnormalities could be further evaluated with CT/PET scan. Portions of each may be amenable to percutaneous sampling but as noted the right upper lobe abnormality is intimately associated with adjacent vascular structures. 3. Mildly prominent mediastinal lymph nodes as described above. More pronounced than in 2005 and favored to be metastatic in nature. 4. 4 mm anterior right middle lobe pulmonary nodule and 4-5 mm right lower lobe subpleural pulmonary nodule. Nonspecific appearance. Attention to followup recommended. 5. Underlying emphysema. 6. Status post cholecystectomy. Mild central biliary ductal prominence probably physiologic in nature. No obstructing process seen. Correlate with clinical presentation and laboratory data. 7. Prior gastric bypass. 8. Large stool burden in the visualized transverse colon. This may be physiologic in nature or could reflect constipation. Correlate clinically. 9. Mild bilateral pyelocaliectasis. Slightly more pronounced than in 2005, but present in 2005, and probably normal physiologic state for this patient. 10. Right side chest port, left side cardiac pacemaker as described above. 11. Mildly ectatic ascending aorta measuring 3.4 cm in diameter. 12. Degenerative and postoperative changes in the spine as described above. There is no acute-appearing bony abnormality. There is no clear indication of osseous metastatic disease on these images. Dictated by... Radu Mani M.D. THIS IS AN ELECTRONICALLY VERIFIED REPORT Radu Main M.D. at 04/22/2017 11:31 AM ALINAK/carlito [facility] A Service of [facility] RADIOLOGY TEXT RESULTS PATIENT: LINDSAY SETHI LOCATION: C3A 315-01 : 53 UNIT #: [id number] AGE: [address]: Areli Lott MD SEX: F ORDER DR: TD: 04/20/2017 23:03 JOB #: [id number] MEDICAL IMAGING REPORT Page 1 of 1
--- NOTE | ~2017-04-20 | CO ---
Unit #: [id number] #: [id number] Patient: LINDSAY SETHI [id number] [address] [place], [place] [address] [id number] I MR#: [id number] NAME: LINDSAY SETHI. ROOM: 315 Age: 61 Sex: F Admission Date: 04/20/2017 : 1955 Attending Physician: Areli Lott M.D. Primary Care Physician: Tay Harry M.D. CONSULTATION REPORT Ms. Sethi is a very pleasant 61-year-old lady with a diagnosis of multiple sclerosis, myelodysplasia although the myelodysplasia was diagnosed without a bone marrow, gastroparesis, who presented to the [facility] with complained of headache, weakness. She had a fall and had a hematoma in the soft tissue but no intracranial bleed and no fracture noted. She did have, on CT scan, a mass in the right upper lobe and another in the left lower lobe concerning for malignancy. The patient is a nonsmoker and has not really been exposed to industrial smoke. She worked as an medical insurance coder and her has only started smoking within the last six months to a year. Of note, she has had chronic bowel problems and chronic GI distress. She had gastric bypass many years ago and has had bowel problems requiring surgeries in the past. She has no prior history of malignancy. PAST MEDICAL HISTORY 1. Myasthenia gravis. 2. Gastroparesis. 3. Sinus pause requiring pacemaker. 4. DVT bilateral lower extremity. Has had an IVC filter placement. 5. GERD. 6. MS. 7. She had kyphoplasty. 8. She has had a fall with recent injury to her head. 9. Hernia repair. 10. Abdominal hysterectomy. 11. Myelodysplasia diagnosed at [facility] without a bone marrow. FAMILY HISTORY Her mother had uterine and thyroid cancer. History of malignancy in a first degree relative. SOCIAL HISTORY Lives with her . Lifelong nonsmoker. Does not drink alcohol. No tobacco use. The patient has worked in the insurance company as an agent. REVIEW OF SYSTEMS Positive for fall with some headache and some chronic stomach problems as noted above. Twelve points otherwise negative. PHYSICAL EXAMINATION GENERAL: Well developed, well nourished lady in no acute distress. VITAL SIGNS: Temperature 97.8, pulse 74, respirations 20, blood pressure 145/69, 100% on room air. HEENT: Eyes show no scleral icterus. Pupils were equal. Mouth moist. Unit #: [id number] #: [id number] Patient: LINDSAY SETHI Hearing is intact. NECK: Normal JVD. Trachea midline. LUNGS: Clear. Equal breath sounds. HEART: Regular rhythm. No peripheral edema. ABDOMEN: Soft. She has some scars with that are well-healed. No masses, no tenderness. EXTREMITIES: Trace edema of the legs. NEUROLOGICAL: She is awake, alert, oriented to person, place and time. Motor and sensory intact. Cranial nerves are intact. Strength is good in her upper arms. She makes good eye contact and smiles. PSYCHIATRIC: No rose or depression. Remainder of the twelve point physical exam is benign. DIAGNOSTIC STUDIES I reviewed the CT scans and notes and those are included in the dictation as above. ASSESSMENT 1. Pleasant lady with lung masses ? With (1) , she is going to undergo biopsy. 2. Workup her anemia with haptoglobin, retic, B12, folate, iron panel. 3. (2) will follow her up. I would like to thank Dr. Gómez for the patient. Dictated by... Perez Samuel M.D. JAYY/cesario TD: 04/22/2017 06:57 JOB #: [id number] CONSULTATION REPORT Page 1 of 1 X X CONSULTATION REPORT
--- NOTE | ~2017-04-20 | OR ---
Unit #: [id number] #: [id number] Patient: LINDSAY SETHI [id number] [address] [address] [id number] I MR#: [id number] NAME: LINDSAY SETHI ROOM: [facility] Date of Procedure: 04/22/2017 Admission Date: 04/20/2017 Surgeon: Linwood Dasilva M.D. : 1955 Attending Physician: Areli Lott M.D. Primary Care Physician: Tay Harry M.D. OPERATIVE REPORT PROCEDURE PERFORMED Flexible fiberoptic bronchoscopy. INDICATION FOR PROCEDURE Abnormal CAT scan. FINDINGS Some mucosal erythema and mucosal abnormality orifice of right upper lobe. SEDATION MAC. See their notes for details. COMPLICATIONS Zero. CONDITION Stable to recovery room. DESCRIPTION OF PROCEDURE The patient was brought to the endoscopy suite and monitored for heart rate, blood pressure, saturations, and end-tidal CO2. She was sedated with MAC, see their notes. Anesthetized with 2% lidocaine in both nares. Viscous lidocaine was applied to both nares. Bronchoscope was introduced into left naris without difficulty. Vocal cords were visualized. They were normal configuration and motion, anesthetized x2. Main trachea was intubated. Some mucus was encountered and was removed. With fluoroscopic guidance, brushings were obtained from right upper lobe. However, really could not access the correct bronchi to get the medial segment required. Brushings were performed in the peripheral area of the shadow. Brushings were also performed in this area of abnormality orifice of the right upper lobe. Biopsies were performed. Hemostasis was confirmed by observation. The bronchoscope was removed without difficulty, and the patient was in good condition postprocedure. Dictated by... Linwood Dasilva M.D. LINDA/jake TD: 04/23/2017 05:17 Unit #: [id number] #: [id number] Patient: LINDSAY SETHI JOB #: [id number] OPERATIVE REPORT Page 1 of 1 X Linwood Dasilva MD X PROCEDURE OPERATIVE NOTE
--- NOTE | ~2017-04-20 | DS ---
Unit #: [id number] #: [id number] Patient: LINDSAY SETHI [id number] [facility] [address]. [place], [place] [address] [id number] I MR#: [id number] NAME: LINDSAY SETHI ROOM: 315 Age: 61 Sex: F Admission Date: 04/20/2017 : 1955 Discharge Date: 04/24/2017 Attending Physician: Areli Lott M.D. Primary Care Physician: Tay Harry M.D. DISCHARGE SUMMARY REASON FOR ADMISSION Status post fall, transfer from outside hospital secondary to abnormal CT of cervical spine, as well as abnormal CT chest. HISTORY OF PRESENT ILLNESS/HOSPITAL COURSE The patient is a 61-year-old female with a longstanding history of multiple sclerosis, mild dysplastic syndrome, followed as an outpatient, gastroparesis, chronic deconditioning who presented status post fall. She was at home and apparently she felt weak, fell awkwardly. Underwent a CT head, as well as CT cervical spine at an outside facility. CT head showed no acute process and/or intracranial bleed; however, CT neck showed findings concerning for lung mass. She underwent a CT chest, which showed right upper lung mass, as well as left lower lung mass. Subsequently she was transferred to [facility] for further evaluation. We have placed a consultation [facility] for evaluation. Patient on 04/22/2017 underwent a flexible fiberoptic bronchoscopy of the right upper lobe. Final cytology, as well as a surgical pathology did not reveal neoplastic cells, however, concerned significantly high. Hence her CT chest with contrast does demonstrate findings very consistent with primary lung carcinoma and/or underlying malignancy secondary to both lesions. We will also place consultation for underlying concern for possible underlying carcinoma to oncology services here. Dr. Alves saw and evaluated the patient; however, we awaited pathology and that is mentioned above but was otherwise negative. While here she was placed on IV Solu-Medrol secondary to underlying wheezing and/or likely underlying COPD versus mild acute bronchitis. At the time of discharge she will be transitioned to p.o. prednisone, as well as Symbicort, albuterol p.r.n., and a Z-MATTHEW has already been written for by Dr. Dasilva. The remainder of her medical condition still remains stable. She did complain of left hip pain and/or discomfort. She was supposed to followup as an outpatient with orthopedic services for questionable hip dislocation. We did perform a CT pelvis without contrast while she was here. Findings showed acute osteopenia but there was no acute findings, no dislocation was noted. Unit #: [id number] #: [id number] Patient: LINDSAY SETHI At this point in time the patient is clinically stable for discharge home. She will followup with Dr. Dasilva as an outpatient next week. Plans are for possible navigational bronchoscopy and/or further evaluation is our underlying concern for malignancy is significantly high, although pathology/biopsy results state otherwise. Patient is well aware of the importance of following up but we will go ahead and discharge her home with the understanding there will be close followup at the time of discharged. DISCHARGE DIAGNOSES 1. Bilateral lung masses, strong concern for underlying lung carcinoma. Biopsy/pathology negative thus far. 2. Mild acute bronchitis. 3. Myelodysplastic syndrome. 4. Recurrent urinary tract infections. 5. Asthma. 6. Gastroparesis. 7. Stratus post pacemaker placement secondary to recurrent sinus pausing. 8. Bilateral lower extremity DVT, status post IVC filter in the past. 9. GERD. 10. Multiple sclerosis. 11. 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 12. Prior history of compression fracture, status post kyphoplasty in the past. 13. Chronic pain syndrome. 14. Severe anxiety disorder. DISCHARGE MEDICATIONS 1. Compazine 5 mg p.o. t.i.d. 2. BuSpar 10 mg p.o. daily. 3. Klonopin 0.5 mg p.o. q.6 p.r.n. 4. Senokot S 1 tablet p.o. b.i.d. 5. Smooth LAX daily. 6. Ferrous gluconate 324 mg p.o. daily. 7. Reglan 10 mg p.o. q. a.c./q.h.s. 8. Melatonin 3 mg p.o. q.h.s. 9. Tylenol 650 mg p.o. q.6 p.r.n. 10. Neurontin 800 mg p.o. q.6. 11. Wellbutrin 45 mg p.o. daily. 12. Remeron 45 mg p.o. q.h.s. 13. Zofran 4 mg p.o. q.6 p.r.n. 14. Duragesic 25 mcg q.48. 15. Rockfall 10/325 one tablet p.o. q.4 p.r.n. 16. Omeprazole 40 mg p.o. b.i.d. 17. Folic acid 1 mg p.o. daily. 18. Prednisone 40 mg p.o. daily x5 days. 19. Z-MATTHEW taken as directed. 20. Symbicort 160/4.5 two puffs b.i.d. 21. Albuterol MDI one puff q.6 p.r.n. DISCHARGE CONDITION Stable. DISCHARGE DISPOSITION Home. FOLLOWUP Unit #: [id number] #: [id number] Patient: LINDSAY SETHI Followup with Dr. Dasilva as an outpatient next week. Dictated by... Nayla Brown/annmarie TD: 04/24/2017 11:56 JOB #: [id number] DISCHARGE SUMMARY Page 1 of 1 X Areli Lott MD X DISCHARGE SUMMARY
--- NOTE | ~2017-04-20 | HP ---
Unit #: [id number] #: [id number] Patient: LINDSAY SETHI [id number] [address] [place], [place] [address] [id number] I MR#: [id number] NAME: LINDSAY SETHI. ROOM: [facility] Age: 61 Sex: F Admission Date: 04/20/2017 : 1955 Attending Physician: Curt Gómez M.D. Primary Care Physician: Tay Harry M.D. HISTORY AND PHYSICAL CHIEF COMPLAINT Status post fall. HISTORY OF PRESENT ILLNESS The patient is a 61-year-old female with a history of multiple sclerosis, MDS, gastroparesis, presented to the [facility] ER earlier this morning complaining of the headache and weakness. The patient stated patient had a fall on night in the bathroom and hit the head on the vanity. The patient denies any loss of consciousness. The patient stated the patient has been gradually having more chronic headache associated with the weakness. The patient had a CT of the head that showed the swelling of the temporal region but no fractures and no intracranial bleed. The patient had a CT of the neck that showed concerning for the lung mass. The CT of the chest showed the right upper lobe mass concerning for the encasement of the pulmonary artery and (1) and another mass on the left lower lobe concerning for the malignancy and the patient is being admitted for the above reasons. The patient denies any fevers, chills, nausea, vomiting, complains of the headache. PAST MEDICAL HISTORY History of a myelodysplastic syndrome, recurrent urinary tract infection, asthma, gastroparesis, sinus pause requiring pacemaker, bilateral lower extremity DVT status post IVC filter placement, GERD, multiple sclerosis, right chest port, status post kyphoplasty complicated by bleeding, hernia repair, total abdominal hysterectomy. PAST SURGICAL HISTORY Surgical history is a hernia repair, status post kyphoplasty, right chest port, liposuction and a tummy tuck, cholecystectomy, gastric sampling, venous stripping, , c-spine fusion, bowl resection for a small bowel obstruction. ALLERGIES Morphine, walnuts, Phenergan, Benadryl. HOME MEDICATIONS She is on mirtazapine, omeprazole, Compazine, bupropion, BuSpar, gabapentin, polyethylene glycol, folic acid, ferrous gluconate, Reglan, Zofran, clonazepam, Lortab, Duragesic, Tylenol and melatonin. FAMILY HISTORY Positive for coronary artery disease, diabetes, CVA. Unit #: [id number] #: [id number] Patient: LINDSAY SETHI SOCIAL HISTORY The patient lives with her , lifelong nonsmoker, does not drink alcohol. REVIEW OF SYMPTOMS Fourteen-point review of symptoms performed and only pertinent positive findings as described above, remaining are negative. PHYSICAL EXAMINATION GENERAL APPEARANCE: On examination the patient is lying on a bed not in acute distress. VITAL SIGNS: Temperature is 97.8, pulse 74, respiratory rate 20, blood pressure 145/69, sating 100% at room air. HEENT: Head normocephalic, positive for a knot on the head with the tenderness and no bleeding. NECK: Supple. LUNGS: Decreased air entry at the bases. HEART: Regular rate and rhythm. ABDOMEN: Soft, positive bowel sounds. Multiple well-healed scars. EXTREMITIES: Mild edema. NEUROLOGIC: Alert, awake, oriented. Cranial nerves are intact. Good strength in the upper arms. DIAGNOSTIC STUDIES LABORATORY DATA: Sodium 137, potassium 4.1, chloride 108, bicarb 25, glucose 76, BUN 20, creatinine 1, calcium 8.7, AST 18, ALT 12, WBC 5.5, hemoglobin 9.1, hematocrit 27.6, platelets 164. IMAGING: CT of the chest shows the right upper lobe mass measuring up to 4.1 x 2.1 x 5.3 and concerning for encapsulating the pulmonary artery and the left lower lobe mass measuring up to 2.09 cm. ASSESSMENT 1. Status post fall. 2. Headache. 3. Lung mass. PLAN Plan to admit the patient to the inpatient. Patient will continue with the pain management and patient will be seen by the pulmonary doctor, Dr. Luo, and Oncology for the lung cancer for the diagnostic procedure and probably a broch with a biopsy. Continue the pain control and repeat the labs again in the morning and further recommendations will follow. Dictated by Nayla York TD: 04/20/2017 20:48 JOB #: [id number] Unit #: [id number] #: [id number] Patient: LINDSAY SETHI HISTORY AND PHYSICAL Page 1 of 1 X CURT GÓMEZ MD HISTORY AND PHYSICAL
--- NOTE | ~2017-04-20 | CT52 ---
[facility] A Service of [facility] RADIOLOGY TEXT RESULTS PATIENT: LINDSAY SETHI LOCATION: C3A 315-01 : 53 UNIT #: [id number] AGE: [address]: CURT GÓMEZ MD SEX: F ORDER DR: [id number] [place] [id number] I MR#: [id number] Acc #: [id number] NAME: LINDSAY SETHI. : 1955 SEX: F STUDY DATE/TIME: 04/20/2017 11:27 UNIT: SEDOF ROOM: [facility] STUDY DESCRIPTION: CT Cervical Spine Wo Cont Attending Physician: Curt Gómez M.D. Ordering Physician: Vladislav Lamb M.D. Primary Care Physician: Tay Harry M.D. MEDICAL IMAGING REPORT This report is preliminary unless electronic signature is present. EXAM Cervical spine CT scan without contrast. INDICATIONS Head injury and neck injury falling 2 days ago at home. Neck pain. COMPARISON 04/07/15. TECHNIQUE Axial 2 mm images were obtained through the surgical spine. Sagittal and coronal reconstructions were generated. This CT exam was performed with one or more of the following radiation dose reduction techniques: automatic exposure control, adjustment of mA and/or kV according to patient size, and iterative reconstruction. FINDINGS The patient has undergone anterior fusion from C3 through C7. There is no fracture or subluxation. On the lower images of the study, there is irregular soft tissue in the right upper lobe medially measuring about 2.8 x 1.3 cm. This was not present in 2015, and is concerning for malignancy. There is also right paratracheal adenopathy present measuring 2.2 cm in diameter. IMPRESSION 1. There are new findings in the upper right chest with a 2.8 x 1.3 cm partially visualized mass and a 2.4 cm area of right paratracheal adenopathy and the findings are concerning for lung malignancy. 2. Postoperative changes of the cervical spine C3 through C7 without evidence of acute injury. [facility] A Service of [facility] RADIOLOGY TEXT RESULTS PATIENT: LINDSAY SETHI LOCATION: [facility] 315-01 : 53 UNIT #: [id number] AGE: [address]: CURT GÓMEZ MD SEX: F ORDER DR: Dictated by... Hima Mccloud M.D. THIS IS AN ELECTRONICALLY VERIFIED REPORT Hima Mccloud M.D. at 04/21/2017 7:02 ALLIE BOND/carlito TD: 04/20/2017 20:12 JOB #: [id number] MEDICAL IMAGING REPORT Page 1 of 1
--- NOTE | ~2017-04-20 | CO ---
Unit #: [id number] #: [id number] Patient: LINDSAY SETHI [id number] [address] [place], [place] [address] [id number] I MR#: [id number] NAME: LINDSAY SETHI. ROOM: 315 Age: 61 Sex: F Admission Date: 04/20/2017 : 1955 Attending Physician: Areli Lott M.D. Primary Care Physician: Tay Harry M.D. Consultation Date: 04/21/2017 CONSULTATION REPORT REASON FOR CONSULTATION Abnormal CAT scan of the chest. HISTORY OF PRESENT ILLNESS Patient is a 61-year-old female who gives a somewhat conflicting history, having told me she has never been diagnosed with lung disease, although asthma is listed in her EHR. She apparently was in the bathroom in the bathtub and slipped and fell and hit her head. She was admitted to the hospital for evaluation. A variety of physicians have seen her including Neurology. A CT scan of the neck to rule out occult fracture secondary to her fall revealed a possible mass, and a CT of her chest was performed. It revealed a right upper lobe mass and then also an area in the left lower lobe with air bronchograms. She denied any pulmonary symptoms to me, no shortness of breath, wheezing, sputum production, chest pain, or hemoptysis. She has had 30 pounds of unexplained weight loss. However, when I examined her, she had obvious expiratory wheezing, and when I told her of my finding, she said, "Oh yes, I'm wheezing," so her history is very conflicting. PAST MEDICAL HISTORY Extensive and includes: 1. Multiple sclerosis which Neurology feels may be progressive. 2. History of myelodysplasia syndrome. 3. Asthma is listed in the EHR. 4. She denied any heart problems, yet she has a permanent pacemaker. 5. History of previous DVT, status post IVC filter. MEDICATIONS Medications at home according to the EHR: 1. Remeron. 2. Omeprazole. 3. Compazine. 4. Wellbutrin. 5. BuSpar. 6. Fentanyl. 7. Neurontin. 8. Gilenya. 9. Hydrocodone. 10. Variety of xvlu-bqo-seejdbf medicines. 11. Lasix 20 mg daily. ALLERGIES Morphine, Phenergan, and Benadryl. Unit #: [id number] #: [id number] Patient: LINDSAY SETHI S SOCIAL HISTORY Never smoker. She drinks wine maybe once every few months. 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 REVIEW OF SYSTEMS She used to weigh 400 pounds and had a lot of intentional weight loss, but recently she states she has had about 30 pounds of unintentional weight loss over the last two or three months. She has ptosis now on her right eye, but she denies that being that way prior to her fall and injury. No fever, sputum production, hemoptysis, chest pain, palpitations, abdominal pain, melena, hematochezia, hematuria, or dysuria. Further review of systems is negative. PHYSICAL EXAMINATION GENERAL: A thin lady in no acute distress. VITAL SIGNS: She is afebrile, pulse 83, respiratory rate 16, and blood pressure is 121/65. She is 5 feet 1 and 116 pounds. HEENT: Pupils are equal, round, and reactive to light. Sclerae are anicteric. Head reveals she has a black eye on the right. She obviously hit her head while falling. CHEST: She has expiratory wheeze throughout all lung martinez best heard posteriorly. No definite consolidation. CARDIAC: Regular rate and rhythm. No pathologic murmur, rub, or gallop. ABDOMEN: Soft and nontender. No hepatomegaly or rebound. EXTREMITIES: No clubbing, cyanosis, or edema. No calf tenderness. SKIN: Warm and dry without rash or diaphoresis. NEUROLOGIC: Grossly intact with no focal muscle or sensory deficits. Oriented x4. DIAGNOSTIC STUDIES LABORATORY: BUN is 18 and creatinine 1.2. INR has not been performed. White blood cell count 3.6, hemoglobin 9.6, and platelet count 192,000. IMAGING: No chest x-ray. She has a CT scan with a right upper lobe medial mass-like area which appears to encase her pulmonary artery. It may be able to be visualized by bronchoscopy in the upper lobe apical segment. She also had an area in the left lower lobe with some air bronchograms. CARDIOLOGY: Rhythm strips have been sinus. IMPRESSION 1. Fall with head trauma, head CT with no subdural or hemorrhage found. There was soft tissue hematoma on the right with no fracture. 2. Abnormal CAT scan with mass-like area right upper lobe and an area in the left lower lobe with air bronchograms. 3. Wheezing and possible history of asthma, history seems to be contradictory. 4. Multiple sclerosis. 5. Myelodysplasia. 6. History of deep venous thrombosis, status post inferior vena cava filters. 7. Medical problems listed above. PLAN Treatment of airways disease with steroids and nebulized bronchodilators. We have discussed the findings of her CAT scan and diagnostic approaches. She understands that regular bronchoscopy may not identify the source but Unit #: [id number] #: [id number] Patient: LINDSAY SETHI certainly is a reasonable way to proceed. The risks, benefits, and alternatives have been discussed, and she agrees to proceed with bronchoscopy in the morning. I will try to have the nurse nursery supervisor arrange that with fluoroscopy and MAC. Certainly, if evaluation is negative, we will consider fine-needle aspiration versus outpatient navigational bronchoscopy with EBUS. Thank you very much for allowing me to participate in the care of Ms. Sethi. Dictated by... Linwood Dasilva M.D. LINDA/lindsey TD: 04/21/2017 21:37 JOB #: [id number] CONSULTATION REPORT Page 1 of 1 X Linwood Dasilva MD X CONSULTATION REPORT
[2017-04-20 13:18] LABS: BASOPHIL% 0.4 % (0-2.5); EOSINOPHIL# 0.2 X10e3 (0-0.7); HEMATOCRIT 27.6 % (35.0-45.0); HEMOGLOBIN 9.1 gm/dL (12.0-16.0); LYMPHOCYTE# 0.2 X10e3 (1.0-3.5); LYMPHOCYTE% 4.2 % (17.0-45.0); MEAN CELL VOLUME 97.6 FL (83-96); MEAN CORPUSCULAR HEMOGLOBIN 32.1 PG (28-34); MEAN CORPUSCULAR HGB CONC 32.8 g/dL (30-36); MEAN PLATELET VOLUME 7.7 FL (6.5-11.5); MONOCYTE# 0.5 X10e3 (0-1.0); MONOCYTE% 8.8 % (3.0-12.0); NEUTROPHIL# 4.6 X10e3 (1.5-7.1); NEUTROPHIL% 83.6 % (40-75); PLATELET COUNT 164 X10e3 (140-420); RED BLOOD COUNT 2.83 X10e (3.90-5.30); RED CELL DISTRIBUTION WIDTH 18.8 % (11.0-15.5); WHITE BLOOD COUNT 5.5 X10e3 (4.0-10.5)
[2017-04-20 13:22] LABS: DIFF IND NO
[2017-04-20 13:38] LABS: ALBUMIN SERUM 3.4 g/dL (3.5-5.0); BILIRUBIN,TOTAL 0.1 mg/dL (0.2-2.0); CALCIUM SERUM 8.7 mg/dL (8.4-10.2); GLOM FILT RATE Estimated 59.9 mL/min (>60); POTASSIUM 4.1 mmol/L (3.5-5.1); PROTEIN TOTAL SERUM 6.4 g/dL (6.0-8.3)
[2017-04-20] MEDS ORDERED: FERROUS GLUCON324 M1 PO (19:46)
[2017-04-20] MEDS ORDERED: LORTAB 10-3251 EACH PO (19:47)
[2017-04-20] MEDS ORDERED: DURAGESIC1 EAC1 TD (19:49)
[2017-04-20] MEDS ORDERED: TYL325 PO (19:50)
[2017-04-20] MEDS ORDERED: DOK PLUS TABLE1 EACH PO (19:52)
[2017-04-20] MEDS ORDERED: MELATONIN3 MG PO (19:53)
[2017-04-20] MEDS ORDERED: REGLAN10 MG PO ×2 (19:54→19:55)
[2017-04-20] MEDS ORDERED: ZOFRAN PO (19:55)
[2017-04-20] MEDS ORDERED: CLONAZEPAM0.5 MG PO (19:56)
[2017-04-21 06:18] LABS: BASOPHIL% 0.5 % (0-2.5); EOSINOPHIL# 0.3 X10e3 (0-0.7); EOSINOPHIL% 8.1 % (0.0-7.0); HEMATOCRIT 30.2 % (35.0-45.0); HEMOGLOBIN 9.6 gm/dL (12.0-16.0); LYMPHOCYTE# 0.3 X10e3 (1.0-3.5); LYMPHOCYTE% 8.3 % (17.0-45.0); MEAN CELL VOLUME 98.3 FL (83-96); MEAN CORPUSCULAR HEMOGLOBIN 31.4 PG (28-34); MONOCYTE# 0.5 X10e3 (0-1.0); MONOCYTE% 12.9 % (3.0-12.0); NEUTROPHIL# 2.5 X10e3 (1.5-7.1); NEUTROPHIL% 70.2 % (40-75); PLATELET COUNT 192 X10e3 (140-420); RED BLOOD COUNT 3.07 X10e (3.90-5.30); RED CELL DISTRIBUTION WIDTH 19.2 % (11.0-15.5); WHITE BLOOD COUNT 3.6 X10e3 (4.0-10.5)
[2017-04-21 06:41] LABS: DIFF IND NO
[2017-04-21 07:32] LABS: CALCIUM SERUM 8.8 mg/dL (8.4-10.2); CREATININE SERUM 1.2 mg/dL (0.6-1.4); GLOM FILT RATE Estimated 48.1 mL/min (>60); POTASSIUM 4.2 mmol/L (3.5-5.1)
[2017-04-21 16:07] LABS: INR 1.1; PROTHROMBIN TIME (PATIENT) 11.2 SECONDS (9.6-11.5)
[2017-04-22 06:04] LABS: HEMATOCRIT 30.4 % (35.0-45.0); HEMOGLOBIN 9.8 gm/dL (12.0-16.0); MEAN CELL VOLUME 98.3 FL (83-96); MEAN CORPUSCULAR HEMOGLOBIN 31.6 PG (28-34); MEAN CORPUSCULAR HGB CONC 32.1 g/dL (30-36); MEAN PLATELET VOLUME 8.3 FL (6.5-11.5); RED BLOOD COUNT 3.1 X10e (3.90-5.30); RED CELL DISTRIBUTION WIDTH 19.1 % (11.0-15.5); RETICULOCYTE 1.3 % (0.5-2.8)
[2017-04-22 06:43] LABS: ALBUMIN SERUM 3.4 g/dL (3.5-5.0); BILIRUBIN,TOTAL 0.7 mg/dL (0.2-2.0); BUN/CREATININE RATIO 26.36; CALCIUM SERUM 9.2 mg/dL (8.4-10.2); CREATININE SERUM 1.1 mg/dL (0.6-1.4); GLOM FILT RATE Estimated 53.4 mL/min (>60); POTASSIUM 4.5 mmol/L (3.5-5.1); PROTEIN TOTAL SERUM 6.6 g/dL (6.0-8.3)
[2017-04-22 06:51] LABS: FOLATE (FOLIC ACID) >23.6 ng/mL (>5.8)
[2017-04-22 07:19] LABS: IRON SERUM 27 ug/dL (28-170); TOTAL IRON BINDING CAPACITY 179 ug/dL (269-535); TRANSFERRIN 128 mg/dL (192-382); TRANSFERRIN SATURATION 15 % (20-50)
[2017-04-24 05:53] LABS: HEMATOCRIT 25.2 % (35.0-45.0); HEMOGLOBIN 8.2 gm/dL (12.0-16.0); MEAN CELL VOLUME 98.3 FL (83-96); MEAN CORPUSCULAR HEMOGLOBIN 31.8 PG (28-34); MEAN CORPUSCULAR HGB CONC 32.4 g/dL (30-36); MEAN PLATELET VOLUME 7.9 FL (6.5-11.5); RED BLOOD COUNT 2.57 X10e (3.90-5.30)
[2017-04-24 05:57] LABS: WHITE BLOOD COUNT 8.5 X10e3 (4.0-10.5)
[2017-04-24 06:35] LABS: BUN/CREATININE RATIO 36.36; CALCIUM SERUM 8.7 mg/dL (8.4-10.2); CREATININE SERUM 1.1 mg/dL (0.6-1.4); GLOM FILT RATE Estimated 53.4 mL/min (>60); POTASSIUM 4.6 mmol/L (3.5-5.1)
[2017-04-24] MEDS ORDERED: DELTASONE20 MG (13:04)
[2017-04-24] MEDS ORDERED: ZITHROMAX1 GM (13:06)
[2017-04-24] MEDS ORDERED: SYMBICORT INH (13:08)
[2017-04-24] MEDS ORDERED: PROAIR HFA8.5 GM (13:09)
== END 2017-04-24 17:51 | disposition home or self-care (01) | DRG 167 ==
LOC: SED 11:02 → SEDOF 15:36 → SED 15:36 → C3A PCU 18:58 → SEDOF 18:58 → CEDOF 19:58 → SED 19:58 → C3A PCU 19:58
PROVIDERS: Emergency Medicine; Family Medicine; Internal Medicine
PROC: 0BBC8ZX Excision of Right Upper Lung Lobe, Via Natural or Artificial Opening Endoscopic, Diagnostic (ICD-10-PCS; principal; 2017-04-22 09:30)
DX: R91.8 Other nonspecific abnormal finding of lung field (principal); J44.0 Chronic obstructive pulmonary disease with (acute) lower respiratory infection; K31.84 Gastroparesis; G35 Multiple sclerosis; D46.9 Myelodysplastic syndrome, unspecified; J20.9 Acute bronchitis, unspecified; K21.9 Gastro-esophageal reflux disease without esophagitis; M62.3 Immobility syndrome (paraplegic); G89.4 Chronic pain syndrome; F41.9 Anxiety disorder, unspecified; M25.552 Pain in left hip; M85.88 Other specified disorders of bone density and structure, other site; R51 Headache; S00.93XA Contusion of unspecified part of head, initial encounter; W19.XXXA Unspecified fall, initial encounter; Z86.73 Personal history of transient ischemic attack (TIA), and cerebral infarction without residual deficits; Z87.440 Personal history of urinary (tract) infections; Z86.718 Personal history of other venous thrombosis and embolism; Z95.0 Presence of cardiac pacemaker; Z90.49 Acquired absence of other specified parts of digestive tract; Z88.5 Allergy status to narcotic agent; Z88.8 Allergy status to other drugs, medicaments and biological substances; Z91.018 Allergy to other foods; Z80.8 Family history of malignant neoplasm of other organs or systems
CPT/HCPCS: 36415; 70450; 70486; 71260; 72125; 72192; 76000; 80048; 80053; 82308; 82378; 82607; 82746; 83010; 83540; 83550; 84146; 85025; 85027; 85044; 85610; 87070; 87102; 87106; 87116; 87205; 87206; 88104; 88108; 88305; 94640; 94760; 96374; 99285; J0171; J1170; J1885; J2250; J2920; Q9967

== ENCOUNTER → 2017-05-13 | Outpatient (CLI) | payer BC, MEDICARE ==
[~2017-05-13] MED LIST changes: +CLONAZEPAM0.5 MG PO; +DELTASONE20 MG; +DOK PLUS TABLE1 EACH PO; +FERROUS GLUCON324 M1 PO; +LORTAB 10-3251 EACH PO; +MELATONIN3 MG PO; +PROAIR HFA8.5 GM; +SYMBICORT INH; +TYL325 PO; +ZITHROMAX1 GM; +ZOFRAN PO
[2017-05-17 12:59] LABS: ASPERGILLUS FLAVUS Negative (Negative); ASPERGILLUS FUMIGATUS Negative (Negative); ASPERGILLUS NIGER Negative (Negative); BLASTOMYCES ANTIBODY Negative (Negative); COCCIDIODES ANTIBODY Negative (Negative); CRYPTOCOCCAL AB <1:2 (()); CRYPTOCOCCAL AG SCREEN SOURCE Serum (()); CRYPTOCOCCAL SCREEN Not Detected (Not Detected); HA AB IGM (HEPPAN) Nonreactive (()); HB CORE AB IGM (HEPPAN) Nonreactive (Nonreactive); HB S AG (HEPPAN) Nonreactive (Nonreactive); HEP C AB (HEPPAN) Nonreactive (Nonreactive); HEP C AB SIGNAL TO CUTOFF 0.06 ratio (<1.00); HISTOPLASMA AB Negative (Negative); MYELOPEROXIDASE AB (PNL) <1.0 AI (<1.0); NIL 0.03 IU/mL (()); PROTEINASE-3 AB (PNL) <1.0 AI (<1.0); QUANTIFERON NEGATIVE (Negative)
== END | disposition home or self-care (01) ==
LOC: CLAB 17:43
PROVIDERS: Internal Medicine Pulmonary Disease
DX: G47.33 Obstructive sleep apnea (adult) (pediatric) (principal); R91.8 Other nonspecific abnormal finding of lung field
CPT/HCPCS: 80074; 82164; 85652; 86021; 86480; 86606; 86612; 86631; 86698

== ENCOUNTER → 2017-07-02 | Outpatient (CLI) | payer BC, MEDICARE ==
--- NOTE | ~2017-07-02 | CR63 ---
[facility] A Service of [facility] & [facility] RADIOLOGY TEXT RESULTS PATIENT: LINDSAY SETHI LOCATION: [facility] : 53 UNIT #: [id number] AGE: [address]: Reyna Troy APRN SEX: F ORDER DR: [id number] [facility] [address] [place], [place] [address] [id number] O MR#: [id number] Acc #: [id number] NAME: LINDSAY SETHI : 1955 SEX: F STUDY DATE/TIME: 07/02/2017 9:43 UNIT: [facility] ROOM: STUDY DESCRIPTION: CR Chest 2 View Attending Physician: Reyna Troy A.P.R.N. Referring Physician: Reyna Troy A.P.R.N. Ordering Physician: Reyna Troy A.P.R.N. Primary Care Physician: Tay Harry M.D. MEDICAL IMAGING REPORT This report is preliminary unless electronic signature is present EXAM Chest PA and lateral, 07/03/2017. HISTORY Shortness of breath on exertion since June 18, 2017. Follow up left lung surgery, left lobectomy for mass removal. FINDINGS The cardiac and mediastinal structures are stable compared with 06/20/2017. There has been no change in the position of the life support equipment. Slight elevation of the right hemidiaphragm is noted with atelectasis at the lung bases. Moderate-sized left hydropneumothorax is noted and is new since the previous examination. Findings were immediately called to nurse practitioner Reyna Troy at 02:10 p.m. on 07/02/2017. There are atelectatic changes at the left lung base. Lungs are otherwise clear. Evidence of prior cervical spine fusion. IMPRESSION New moderate sized left pneumothorax compared with 06/20/2017. Findings called to nurse practitioner Reyna Troy at 02:10 p.m. on 07/02/2017. STAT * RESULT Dictated by... Donte Dowling M.D. THIS IS AN ELECTRONICALLY VERIFIED REPORT Donte Dowling M.D. at 07/03/2017 7:27 AM KRT/evelia TD: 07/02/2017 14:17 JOB #: [id number] [facility] A Service of [facility] & [facility] RADIOLOGY TEXT RESULTS PATIENT: LINDSAY SETHI LOCATION: [facility] #: [id number] : 53 UNIT #: [id number] AGE: [address]: Reyna Troy APRN SEX: F ORDER DR: MEDICAL IMAGING REPORT Page 1 of 1 COPY
== END | disposition home or self-care (01) ==
LOC: CRAD 09:28
DX: R91.1 Solitary pulmonary nodule (principal); J93.9 Pneumothorax, unspecified
CPT/HCPCS: 71020

== ENCOUNTER 2017-07-09 15:50 | Emergency (ER) | payer BC, MEDICARE ==
[~2017-07-09] VITALS: Ht 154.9 cm; Wt 50.3 kg
--- NOTE | ~2017-07-09 | CR72 ---
[facility] A Service of [facility] RADIOLOGY TEXT RESULTS PATIENT: LINDSAY SETHI LOCATION: [facility] : 53 UNIT #: [id number] AGE: [address]: Tristen Helms MD SEX: F ORDER DR: [id number] [facility] [address] [place], [place] [address] [id number] E MR#: [id number] Acc #: [id number] NAME: LINDSAY SETHI. : 1955 SEX: F STUDY DATE/TIME: 07/09/2017 16:56 UNIT: [facility] ROOM: STUDY DESCRIPTION: CR Chest Single View Portable Attending Physician: Tristen Helms M.D. Referring Physician: Tay Harry M.D. Ordering Physician: Tristen Helms M.D. Primary Care Physician: Tay Harry M.D. MEDICAL IMAGING REPORT This report is preliminary unless electronic signature is present EXAM Portable chest. HISTORY Left-sided chest pain, abdominal pain and fever onset today. Recent surgery. COMPARISON 07/02/2017. TECHNIQUE Single AP view chest was obtained. FINDINGS A left pneumothorax is again noted. The size of the pneumothorax is no better than on the previous examination and may be slightly increased. No shift of the mediastinum is noted. No new infiltrates are seen on either side. There is atelectasis or volume loss with consolidation at the left lung base that is unchanged. The heart and mediastinum are stable and the vascular pattern is normal. IMPRESSION 1. Residual left pneumothorax is unchanged to slightly larger since the previous examination, but there is no evidence of mediastinal shift. 2. No new infiltrates are seen since the previous examination. Patchy infiltrate at the left lung base is again noted and unchanged. Dictated by... Tr Cosby M.D. THIS IS AN ELECTRONICALLY VERIFIED REPORT Tr Cosby M.D. at 07/11/2017 7:07 AM RLF/gz [facility] A Service of [facility] RADIOLOGY TEXT RESULTS PATIENT: LINDSAY SETHI LOCATION: [facility] #: [id number] : 53 UNIT #: [id number] AGE: [address]: Tristen Helms MD SEX: F ORDER DR: TD: 07/10/2017 08:02 JOB #: [id number] MEDICAL IMAGING REPORT Page 1 of 1 COPY
--- NOTE | ~2017-07-09 | EKG ---
PATIENT: LINDSAY SETHI UNIT #: [id number] Ventricular Rate: 76 BPM Atrial Rate: 76 BPM P-R Interval: 148 ms QRS Duration: 88 ms Q-T Interval: 362 ms QTC Calculation(Bezet): 407 ms P [place]: 65 degrees Calculated R [place]: 13 degrees Calculated T [place]: 64 degrees Diagnosis Line: Normal sinus rhythm Diagnosis Line: Low voltage QRS Diagnosis Line: Borderline ECG Diagnosis Line: When compared with ECG of 07-MAR-2017 17:34, Diagnosis Line: Premature ventricular complexes are no longer Diagnosis Line: Present Diagnosis Line: Nonspecific T wave abnormality no longer evident Diagnosis Line: in Lateral leads Diagnosis Line: Confirmed by FE NERI MD ([id number]) on 07/10/2017 Diagnosis Line: 7:17:24 AM INTERPRETING MD: HALLE SANTIAGO
[2017-07-09 16:57] LABS: POC - CKMB <1.0 ng/mL (0.0-7.9); POC - TROPONIN <0.05 ng/mL (<=0.05)
[2017-07-09 17:07] LABS: BASOPHIL% 0.4 % (0-2.5); DIFF IND NO; EOSINOPHIL% 0.4 % (0.0-7.0); HEMATOCRIT 29.6 % (35.0-45.0); HEMOGLOBIN 9.9 gm/dL (12.0-16.0); LYMPHOCYTE# 0.1 X10e3 (1.0-3.5); LYMPHOCYTE% 1.3 % (17.0-45.0); MEAN CELL VOLUME 95.5 FL (83-96); MEAN CORPUSCULAR HEMOGLOBIN 31.9 PG (28-34); MEAN CORPUSCULAR HGB CONC 33.4 g/dL (30-36); MEAN PLATELET VOLUME 8.2 FL (6.5-11.5); MONOCYTE# 0.4 X10e3 (0-1.0); MONOCYTE% 6.3 % (3.0-12.0); NEUTROPHIL# 6.2 X10e3 (1.5-7.1); NEUTROPHIL% 91.6 % (40-75); PLATELET COUNT 166 X10e3 (140-420); RED CELL DISTRIBUTION WIDTH 16.8 % (11.0-15.5); WHITE BLOOD COUNT 6.8 X10e3 (4.0-10.5)
[2017-07-09 17:23] LABS: ALBUMIN SERUM 3.3 g/dL (3.5-5.0); BILIRUBIN, DIRECT 0.1 mg/dL (0.0-0.2); BILIRUBIN,INDIRECT 0.4 mg/dL (0.0-0.9); BILIRUBIN,TOTAL 0.5 mg/dL (0.2-2.0); BUN/CREATININE RATIO 16.31; CALCIUM SERUM 8.6 mg/dL (8.4-10.2); CREATININE SERUM 1.9 mg/dL (0.6-1.4); GLOM FILT RATE Estimated 27.4 mL/min (>60); POTASSIUM 3.9 mmol/L (3.5-5.1); PROTEIN TOTAL SERUM 6.6 g/dL (6.0-8.3)
[2017-07-09 17:36] LABS: INR 1.1; PROTHROMBIN TIME (PATIENT) 12.1 SECONDS (10.0-11.7)
[2017-07-09 17:49] LABS: PARTIAL THROMBOPLASTIN TIME 87.4 SECONDS (23.5-31.3)
[2017-07-09 18:42] LABS: URINE SOURCE CLEAN CATCH
[2017-07-09 18:53] LABS: URINE APPEARANCE CLEAR; URINE BILIRUBIN NEG (NEG); URINE BLOOD NEG (NEG); URINE COLOR YELLOW; URINE GLUCOSE NEG (NEG); URINE KETONE NEG (NEG); URINE LEUKOCYTE ESTERASE NEG (NEG); URINE NITRATE NEG (NEG); URINE PROTEIN NEG (NEG); URINE UROBILINOGEN 0.2 MG/DL (NEG)
[2017-07-09 18:57] LABS: CULTURE INDICATED? NO
== END 2017-07-09 19:35 | disposition home or self-care (01) ==
LOC: CED 15:50
PROVIDERS: Emergency Medicine
DX: J95.811 Postprocedural pneumothorax (principal); J06.9 Acute upper respiratory infection, unspecified; G89.18 Other acute postprocedural pain; E86.0 Dehydration
CPT/HCPCS: 36415; 71010; 80048; 80076; 81003; 82553; 83605; 84484; 85025; 85610; 85730; 87040; 93005; 96361; 96374; 99284; J3010

== ENCOUNTER → 2017-07-16 | Outpatient (CLI) | payer BC, MEDICARE ==
--- NOTE | ~2017-07-16 | CR63 ---
[facility] A Service of [facility] & [facility] RADIOLOGY TEXT RESULTS PATIENT: LINDSAY SETHI LOCATION: [facility] : 53 UNIT #: [id number] AGE: [address]: Joe Bueno MD SEX: F ORDER DR: [id number] [facility] [address] [place], [place] [address] [id number] O MR#: [id number] Acc #: [id number] NAME: LINDSAY SETHI. : 1955 SEX: F STUDY DATE/TIME: 07/16/2017 19:02 UNIT: [facility] ROOM: STUDY DESCRIPTION: CR Chest 2 View Attending Physician: Joe Bueno Ordering Physician: Joe Araya M.D. Primary Care Physician: Tay Harry M.D. MEDICAL IMAGING REPORT This report is preliminary unless electronic signature is present REVISED REPORT SEE ADDENDUM EXAM Two-view chest, 07/16/2017 INDICATION 62-year-old female presenting for evaluation of pneumothorax. Left lung surgery for lung mass, shortness of air with activity. Symptoms 3 weeks. Short of breath. TECHNIQUE Two-view chest COMPARISON Frontal chest, 07/09/2017 FINDINGS Right-sided MediPort catheter unchanged in this patient status post anterior cervical fusion. Gastric stimulator device, IVC filter, and dual lead left-sided pacemaker present. Additional support equipment artifact projects over the right mid abdomen of unclear etiology. The patient is status post thoracolumbar vertebroplasty. Cardiac silhouette demonstrates a tortuous and ectatic aorta which is unchanged. Vascularity normal. No new opacities in the right lung. The patient has a persistent left-sided pneumothorax. The apical and basilar components both appear slightly larger than on the prior study. There is atelectasis in the left lung base and there is a small left effusion. No convincing evidence of new mediastinal shift. There is [facility] A Service of [facility] & [facility] RADIOLOGY TEXT RESULTS PATIENT: LINDSAY SETHI LOCATION: [facility] : 53 UNIT #: [id number] AGE: [address]: Joe Bueno MD SEX: F ORDER DR: underlying thoracolumbar scoliosis. IMPRESSION 1. Previously documented moderate-sized left-sided pneumothorax is slightly larger than on the two most recent comparison studies. No distinct new mediastinal shift identified. Persistent atelectasis in the left lung base and small left effusion. This has been marked a STAT dictation. I have also called the answering service for the ordering physician Dr. Araya at the time of this dictation requesting a return phone call. That is pending at this time. 2. Tubes and lines appear to be in satisfactory position. No new opacities on the right. 3. Postop changes left lung base. STAT * RESULT Dictated by... López Higginbotham M.D. THIS IS AN ELECTRONICALLY VERIFIED REPORT López Higginbotham M.D. at 07/17/2017 2:08 PM Melissa TD: 07/17/2017 07:57 JOB #: [id number] ADDENDUM Findings regarding the left-sided hydropneumothorax have been discussed by telephone with Dr. Araya at approximately 06:30 hours 07/17/2017. Dictated by... López Higginbotham M.D. THIS IS AN ELECTRONICALLY VERIFIED REPORT López Higginbotham M.D. at 07/18/2017 5:25 PM Melissa TD: 07/17/2017 08:39 JOB #: [id number] CC: Sovera/invision Please Delete MEDICAL IMAGING REPORT Page 1 of 1 COPY
== END | disposition home or self-care (01) ==
LOC: CRAD 18:30
DX: J93.9 Pneumothorax, unspecified (principal); J90 Pleural effusion, not elsewhere classified; J98.11 Atelectasis; Z98.890 Other specified postprocedural states
CPT/HCPCS: 71020

== ENCOUNTER → 2017-07-23 | Outpatient (CLI) | payer BC, MEDICARE ==
--- NOTE | ~2017-07-23 | CR63 ---
[facility] A Service of [facility] & [facility] RADIOLOGY TEXT RESULTS PATIENT: LINDSAY SETHI LOCATION: [facility] : 53 UNIT #: [id number] AGE: [address]: Reyna Troy APRN SEX: F ORDER DR: [id number] [facility] [address] [place], [place] [address] [id number] O MR#: [id number] Acc #: [id number] NAME: LINDSAY SETHI : 1955 SEX: F STUDY DATE/TIME: 07/23/2017 11:30 UNIT: [facility] ROOM: STUDY DESCRIPTION: CR Chest 2 View Attending Physician: Reyna Troy A.P.R.N. Referring Physician: Reyna Troy A.P.R.N. Ordering Physician: Reyna Troy A.P.R.N. Primary Care Physician: Tay Harry M.D. MEDICAL IMAGING REPORT This report is preliminary unless electronic signature is present EXAM Chest x-ray 07/23 INDICATION Left side chest tube last week. Status post removal on last Saturday. Follow up pneumothorax. FINDINGS Two views of the chest are compared with 07/19/2017. Cardiac and mediastinal contours are within normal limits. Right side Port-A-Cath remains in good position. Patient is status post cervical thoracic fusion. Left side pacer in place. There is a small volume of left pleural fluid. Postoperative changes noted at the left lung base. No pneumothorax is seen. IMPRESSION Postop change in the left lung with a small left pleural effusion. No pneumothorax. Dictated by... Tr Feng Jr., M.D. THIS IS AN ELECTRONICALLY VERIFIED REPORT Tr Feng Jr., M.D. at 07/24/2017 3:37 PM OPAL/zena TD: 07/24/2017 13:12 JOB #: [id number] MEDICAL IMAGING REPORT Page 1 of 1 COPY
== END | disposition home or self-care (01) ==
LOC: CRAD 11:11
DX: J93.9 Pneumothorax, unspecified (principal); J90 Pleural effusion, not elsewhere classified; Z98.890 Other specified postprocedural states
CPT/HCPCS: 71020